=== PATIENT | female | born 1990 | race Caucasian/White ===

== ENCOUNTER 2021-04-14 20:26 | Outpatient (REF) | payer OTHER, SELFPAY | END 2021-04-14 20:27 | disposition home or self-care (01) | LOC: LBN 20:26 | PROVIDERS: Visit Provider Nurse Practitioner Family | DX: R30.0 Dysuria (principal) | CPT/HCPCS: 87077; 87086; 87186 ==

== ENCOUNTER 2021-05-30 13:51 | Outpatient (REF) | payer OTHER, SELFPAY ==
[2021-05-30 20:03] LABS: *AMPHETAMINES SCREEN URINE Negative (Negative); *BARBITURATES SCREEN URINE Negative (Negative); *BENZODIAZEPINES SCREEN URINE Negative (Negative); Cannabinoids THC Negative (Negative); Cocaine Screen,Urine Negative (Negative); METHADONE URINE SCREEN Negative (Negative); OPIATES URINE SCREEN Negative (Negative)
[2021-05-30 20:25] LABS: Tricyclic Antidepressants Negative (Negative)
[2021-06-02 13:51] LABS: Chlamydia Result Negative (Negative); GC Result Negative (Negative)
[2021-06-06 09:57] LABS: Buprenorphine Negative ng/mL (Cutoff: 5.0); Norbuprenorphine Negative ng/mL (Cutoff: 2.5)
== END 2021-05-30 13:52 | disposition home or self-care (01) ==
LOC: LBN 13:51
PROVIDERS: Visit Provider Advanced Practice Midwife
DX: O26.891 Other specified pregnancy related conditions, first trimester (principal); N89.8 Other specified noninflammatory disorders of vagina; R30.0 Dysuria; Z11.3 Encounter for screening for infections with a predominantly sexual mode of transmission; Z3A.12 12 weeks gestation of pregnancy
CPT/HCPCS: 80307; 87077; 87491; 87591; 87086; 87186; 87480; 87510; 87660

== ENCOUNTER 2021-06-06 02:12 | Outpatient (CLI) | payer OTHER, SELFPAY ==
[2021-06-06 15:05] LABS: Abs Immature Grans 0.04 10^3/uL (0.0-0.06); Absolute Basophil Count 0.04 10^3/uL (0.0-0.2); Absolute Eosinophil Count 0.12 10^3/uL (0.0-0.7); Absolute Lymphocyte Count 1.65 10^3/uL (1.2-3.4); Absolute Monocyte Count 0.62 10^3/uL (0.1-0.8); Absolute Neutrophil Count 5.68 10^3/uL (1.2-6.7); Basophils % 0.5; Eosinophils % 1.5; HCT 33.6 % (36.0-46.0); Immature Grans % 0.5; Lymphocytes % 20.2; MCH 29.6 pg (27.0-33.0); MCHC 32.7 % (32.0-36.0); MCV 90.3 fL (80-95); MPV 8.3 fL (8.0-11.0); Monocytes % 7.6; Neutrophils % 69.7; Nucleated RBC 0 %; Platelet Count 298 10^3/uL (130-400); RBC 3.72 10^6/uL (3.93-5.22); RDW 14.3 % (11.7-14.6); RDW-SD 46.6 fL; WBC 8.15 10^3/uL (4.4-10.8)
[2021-06-06 16:04] LABS: TSH (W/Ref FT4) 0.48 uIU/mL (0.36-3.74)
[2021-06-07 10:21] LABS: Hepatitis B Surface Ag Negative (Negative)
[2021-06-07 10:24] LABS: Varicella IgG Antibody Negative (See Note)
[2021-06-07 10:31] LABS: Rubella IgG Ab (UVM) Positive (See Note)
[2021-06-07 11:01] LABS: HIV-1/2 Ag & Ab Screen Negative (Negative)
[2021-06-07 11:02] LABS: Hepatitis C Ab w Rflx HCV PCR Negative (Negative)
[2021-06-08 11:59] LABS: Syphilis Total Ab w/Reflex Nonreactive (Nonreactive)
== END 2021-06-06 02:13 | disposition home or self-care (01) ==
LOC: LBO 02:12
PROVIDERS: Visit Provider Advanced Practice Midwife
DX: Z34.91 Encounter for supervision of normal pregnancy, unspecified, first trimester; Z83.49 Family history of other endocrine, nutritional and metabolic diseases
CPT/HCPCS: 36415; 86787; 86803; 86850; 86900; 86901; 87340; 87389; 84443; 85025; 86762; 86780

== ENCOUNTER 2021-09-11 03:25 | Outpatient (CLI) | payer OTHER, SELFPAY ==
[2021-09-11 11:55] LABS: HCT 33.2 % (36.0-46.0); HGB 10.5 g/dL (11.2-15.7); MCH 30.3 pg (27.0-33.0); MCHC 31.6 % (32.0-36.0); MCV 95.7 fL (80-95); MPV 8.3 fL (8.0-11.0); Platelet Count 276 10^3/uL (130-400); RBC 3.47 10^6/uL (3.93-5.22); RDW 12.7 % (11.7-14.6); RDW-SD 44.6 fL; WBC 9.09 10^3/uL (4.4-10.8)
[2021-09-11 12:01] LABS: Glucose,1 Hr (Glucola) 160 mg/dL (80-140)
== END 2021-09-11 03:26 | disposition home or self-care (01) ==
LOC: LBO 03:25
PROVIDERS: Visit Provider Advanced Practice Midwife
DX: Z34.92 Encounter for supervision of normal pregnancy, unspecified, second trimester (principal); Z3A.27 27 weeks gestation of pregnancy
CPT/HCPCS: 36415; 82950; 85027

== ENCOUNTER 2021-11-06 19:33 | Observation (INO) | payer OTHER, SELFPAY ==
--- NOTE | 2021-11-06 19:06 | W.OBNST ---
Date of service: 11/06/21 Time of Service: 19:06 NST Evaluation Reason for NST Reasons for Nonstress Test: LABOR Test and Monitor Explained Test/Monitor Explained: Test Explained, Monitor Explained and Patient Verbalized Understanding NST Evaluation Patient States Movement: Present Variability: Moderate 6-25 bpm Accelerations: 15x15 Decelerations: None NST Results: Reactive Note NST Note Note: NST is done as patient present with contractions all day and complaint of small leak of clear fluid at 1000 today. ROM plus obtained. NST is reactive and reassuring. Contractions are noted every 5 minutes. Will await ROM plus results before any further assessment. Patient is comfortable. NST Reviewed and Verified by: Alaina Montano
[2021-11-06 19:23] LABS: ROM Plus Negative
--- NOTE | 2021-11-06 19:35 | W.PM.OBHPL1 ---
Date of service: 11/06/21 Time of Service: 19:35 Assessment and Plan Assessment and plan (1) Irregular uterine contractions: Status: Acute Assessment and plan: 1. ROM plus negative 2. Not dilated 3. IV hydration and reassess 4. GBS will be obtained todayKH OB-HPI Labor/Delivery History of Present Illness Reason for Visit: rule out labor Chief Complaint: Uterine Contractions; Suspected Rupture of Membranes , Associated Signs and Symptoms of Suspected ROM: vaginal discharge . JOHN Calculator Estimated Delivery Date Method Current WG Current Estimate 12/08/21 Ultrasound #1 35w 3d Other Estimates 11/28/21 LMP (Certain) 36w 6d Comments: had small leak of fluid at 1000 today, none since. Contractions today but is not well hydrated. No bleeding reported. baby is active. KH History of Present Expected Delivery Route/Plan - CNM, may want to meet MD's in case FOB - Phil Schrader (1st together, has three other children, 1 twin with autism) BG - Estrella Arrington Varicella Non-Immune - offer vaccine PP Specific Issues/Plan 1. History of frequent UTI - treated 04/16 with macrobid x 7 days 1a. symptomatic and hematuria - treated with macrobid x 10 days 05/30. culture sent, cranberry tablets recommended 1b. UTI - pos. e.coli - treated with macrobis x 10 days. 2. Family history of ASD- patient's sister, offered Level 2 - chooses [facility] ultrasound 3. Declines serum genetic testing. 4. Faiza declines covid vaccine, partner Phil is vaccinated. 5. Heart murmur - referred to her PCP for evaluation. 6. Varicella non immune - discuss w/pt, offer vaccine PP 7. Reports umbilical hernia and diastasis, she will meet with surgeon. Declines PT referral until PP.-maternity support recommended, 8. 1 hour 160, 3 hr (done out of system) 9. Anemia, review dietary and iron supplementation 10. repeat fingerstick hgb 33 weeks 11. 3 hour being done out of [facility], will be doing it 10/16/21: 11a. patient reported 3 hour levels, 68/150/162/149 11b. will start doing 4 times daily glucose checks and bring log 10/27/21 Review of Systems Narrative: ROS is negative except for uterine contractions and mild discomfort. ROM plus negative and patient is reassured. PFSH All Active Problems (Updated 11/06/21 @ 19:42 by Alaina Montano CNM) Irregular uterine contractions (Acute) Gestational diabetes (Acute) Rectus diastasis of lower abdomen (Acute) Susceptible to varicella (non-immune), currently (Acute) Vaginal discharge during in first trimester (Acute) Dysuria during (Acute) Family history of thyroid disease (Acute) Nausea and vomiting during (Acute) (Acute) Hx of urinary tract infection (Acute) Positive test (Acute) Medical History History of migraine Hx of recurrent urinary tract infection Ocular migraine Family History Sister Thyroid disorder graves disease Father Depression Anxiety Maternal Grandmother Heart disease Social History Smoking risk assessment performed?: No History Past Pregnancies Del. Date GA/Weeks # Outcome Route Wgt Sex Labor Lgth Anesthesia Location Prov Compl 05/02/16 40 No Successful vaginal 7 lb Female [facility] 04/16/18 38 No Successful vaginal 6 lb 8 oz Male 4 [facility] 05/19/20 37 No Successful vaginal 7 lb 1 oz Male 3 hours [facility] Delivery Date: 05/02/16 Last Updated by: Alaina Link CNM planned induction at 40 weeks. [facility] Delivery Date: 04/16/18 Last Updated by: Alaina Link CNM AROMChris Delivery Date: 05/19/20 Last Updated by: Alaina Link CNM Luke PROM, IOL Meds Allergies and Home Medications Allergies Allergy/AdvReac Type Severity Reaction Status Date / Time No Known Allergies Allergy Verified 11/06/21 19:41 Home Medications Medication Instructions Recorded Confirmed Type PNV 153-FA 400 mcg-om3 35 mg-dha tab PO BID tab 04/14/21 10/12/21 History 25 mg-epa 5 mg-fish oil chew tablet ( Gummies) ondansetron HCl 4 mg tablet 4 mg PO Q8H PRN #45 tab 10/12/21 10/12/21 Rx alcohol swabs (Alcohol Pads) 1 pad TOPICAL .4 times daily #200 10/19/21 Rx ea blood sugar diagnostic (Blood #100 10/19/21 Rx Glucose Test) blood-glucose meter #1 10/19/21 Rx lancets 26 gauge #200 10/19/21 Rx Exam Physical Exam Vital signs: see nurses notes. Constitutional Constitutional: mild distress and thin Detailed Labor and Delivery Exam Dilation: 0 Effacement (%): 10 station: -3 Cervix position: posterior Consistency: soft Allan Score: Cervical Points Exam 0 1 2 3 Dilation Closed 1-2cm 3-4 cm 5-6cm Effacement 0-30% 40-50% 60-70% 80% Consistency Firm Medium Soft Station -3 -2 -1,0 +1,+2 Position Posterior Mid Anterior ALLAN Score(Cervical Ripeness Score): 2 Amniotic Membrane Status: Intact ROM Plus: Negative Monitor Mode: Palpation Contraction Frequency(min): 5-7 Contraction Duration(sec): 60-80 Contraction Intensity: Mild Fetus A Heart Rate Baseline: 125 Monitor Accelerations: 15 X 15 Monitor Decelerations: None Variability: Moderate (6-25 BPM) Categories: Category I Est. Weight: 5 lb HEENT Exam HEENT Exam: Normal Neck Exam Neck Exam: Not Done Chest/Brest/Axilla Exam Chest Exam: Normal Breast Exam Breast Exam: Not Done Respiratory Exam Respiratory Exam: Normal Cardiovascular Exam Cardiovascular Exam: Normal Abdominal Exam Abdominal Exam: Normal Rectal Exam Rectal Exam: Not Done Exam Exam: Normal Extremities Exam Extremities Exam: Normal Back/Spine/Pelvis Exam Back Exam: Not Done Pelvis Adequate: Yes Skin Exam Skin Exam: Normal Neurological Exam Neurological Exam: Normal Psychiatric Exam Psychiatric Exam: Normal Results Results Group Beta Strep: Done-Result Unknown Risk Assessment Risk for Shoulder Dystocia Historical/Initial OB: NEGATIVE FOR: Pelvic Abnormality, Pre- BMI>30, Previous Shoulder Dystocia or Previous Macrosomia Date/Initial: 11/06/21 Delivery Plan @ 36wks: NVD Risk for Pre-Eclampsia Yes, if one or more: NEGATIVE FOR: Hx Pre-E/Gest HTN, Chronic HTN, Multiple Gestation, Pre-gestational DM, Renal Disease, Systemic Lupus or APA Syndrome Yes, if 2 or more: NEGATIVE FOR: Nulliparity, Age>= 35 yrs, >10yr btwn pregnancies, BMI>30, ethinicty, Mother/Sister w/ Pre-E or Previous IUGR Risk for Post- Hemorrhage Initial: NEGATIVE FOR: Multiple Gestation, Previous PPH, Known Clotting Deficiency, Grand Multiparity or Anticoagulation Risks Reviewed Risks Reviewed Upon Admission: Yes
[2021-11-06] MEDS: Lactated Ringers 1,000 ML 1000 ML IV ×2 (19:46→20:45)
[2021-11-06 19:47] VITALS: BP 106/55; PULSE 78; RESP 18; TEMP 36.8
[2021-11-06 19:48] VITALS: BP 106/55; PULSE 78
[2021-11-06 20:00] VITALS: BP 119/66; PULSE 82
--- NOTE | 2021-11-06 21:22 | W.PM.OBNL1 ---
Date of service: 11/06/21 Time of Service: 21:22 Contractions Monitor Mode: External Contraction Frequency(min): irregular q4-6 Intensity: Mild Fetus A Monitor: External (US) Heart Rate Baseline: 140 Presentation: Cephalic Variability: Moderate (6-25 BPM) Categories: Category I Accelerations: 15 X 15 Decelerations: None Amniotic Membrane Status: Intact Assessment and Plan Assessment and plan (1) Dehydration during : Status: Acute Assessment and plan: Urine sp gr 1.030, received 1 liter LR bolus IV Given a 2nd liter of LR as bolus an hour later Drinking gingerale and tolerating PO intake well Repeat urine dip per void (2) Ketonuria: Status: Acute Assessment and plan: Large ketones on urine dip. CGM in the 50's. Given gingerale to drink with PB on sukhjinder crackers. (3) uterine contractions in third trimester, antepartum: Status: Acute Assessment and plan: 31 yo @ 35+3 wks per LMP confirmed by 9 wk ultrasound ROM negative. Cvx closed on admission evaluation. GBS unknown. Will recheck cvx in 2-3 hrs (4) Gestational diabetes: Status: Acute Assessment and plan: Diet controlled, using CGM, has adopted a keto diet for past few weeks. CGM readings 60-100 Has had a TWG of 20 lbs 36 wk weight/BHARATH ultrasound due next week Objective Temp Pulse Resp BP 98.2 F 78 18 106/55 L 11/06/21 19:47 11/06/21 19:48 11/06/21 19:47 11/06/21 19:48 Laboratory Results Membranes Rupture Negative 11/06/21 18:23 Objective Narrative Objective Narrative: CGM readings for glucose 55-65 Fingerstick POC glucose 78 UA large ketones, sp gr 1.030 Category 1 tracing, uterine activity continues Tolerating PO intake Normotensive, afebrile FOB at bedside, appropriate concern and support Subjective Interval history since last seen: Continues to feel contractions that have begun to hurt in her back. No nausea, bleeding, or ROM. States she feels off. Has been eating a keto diet, found that recently any carbohydrate intake causes blood sugar spikes as high as 200 with nausea and other symptoms, then it falls rapidly so she cut nearly all carbs out. She shows a CGM log of blood sugars remaining 60-100 for several days, including postprandial values.
[2021-11-06] MEDS: Ondansetron 4 MG/2 ML VIAL IVP (22:04)
[2021-11-06 22:17] VITALS: BP 125/67; PULSE 86; RESP 20; TEMP 36.8
--- NOTE | 2021-11-06 22:22 | W.PM.OBNL1 ---
Date of service: 11/06/21 Time of Service: 22:22 Pelvic Exam Dilation: 3 Effacement (%): 80 station: -3 Cervix Position: posterior Consistency: soft Vaginal Exam Presentation: Cephalic Contractions Monitor Mode: External Contraction Frequency(min): q4-6 Intensity: Mild/Moderate (with back pain) Fetus A Monitor: External (US) Heart Rate Baseline: 140 Presentation: Cephalic Variability: Moderate (6-25 BPM) Accelerations: 15 X 15 Decelerations: None Amniotic Membrane Status: Intact Assessment and Plan Assessment and plan (1) uterine contractions in third trimester, antepartum: Status: Acute Assessment and plan: A: multipara with hx rapid labor suspect cervical change, possibly in early late labor (35+3 wks) category 1 tracing CGM now reading in the 90's after snack P: Begin PCN prophylaxis for unknown GBS status Move to labor room Zofran 4 mg IVP Recheck cvx in 2-3 hrs Objective Temp Pulse Resp BP 98.2 F 86 20 125/67 11/06/21 22:17 11/06/21 22:17 11/06/21 22:17 11/06/21 22:17 Laboratory Results Membranes Rupture Negative 11/06/21 18:23 Vital Signs Reviewed: Yes Subjective Interval history since last seen: nausea increased, requesting zofran for anti-emetic
[2021-11-06] MEDS: Penicillin G POT. 5,000,000 UNITS in Normal Saline 100 ML 200 UNITS IVPB (22:36)
[2021-11-07] VITALS (9 sets, daily range): BP systolic 107–119; BP diastolic 54–66; PULSE 67–89; RESP 16–18; TEMP 36.8–37.1
--- NOTE | 2021-11-07 | DI.US_ITS ---
Exam(s) US OB BHARATH WEIGHT EXAM: US OB BHARATH WEIGHT CLINICAL HISTORY: gestational DM, S<D, PTL risk. TECHNIQUE: Transabdominal obstetrical ultrasound was performed. COMPARISON: US US OB 2-3 TRIMESTER from 07/24/2021 FINDINGS: There is a single viable intrauterine gestation with cardiac activity identified-135 bpm The fetus is presently in cephalic position . Amniotic fluid: There is a normal amount of amniotic fluid. Placental location: The placenta is anterior-fundal, grade 2,with no evidence of placenta previa.The distance from the tip of the placenta to the internal cervical os is 7.5 cm on today's study Dating parameters place this at approximately 36 weeks gestational age, implying JOHN of Nov. BPD measures 36 weeks and 1 day HC measures 38 weeks and 1 day AC measures 34 weeks and 2 days FL measures 35 weeks and 3 days Estimated weight is 2612 gm-5 pounds 12 ounces Fetus is at the 38th percentile on the Hadlock scale. IMPRESSION:: Viable 3rd trimester gestation, as described above. Cervical length is measured at 1.6 cm DATA REPOSITORY:
--- NOTE | 2021-11-07 00:08 | PGE_ITS ---
Date of service: 11/07/21 Time of Service: 00:08 Pelvic Exam Dilation: 3.5 Effacement (%): 80 station: -3 Cervix Position: posterior Consistency: soft Vaginal Exam Presentation: Cephalic Contractions Monitor Mode: External Contraction Frequency(min): irregular q3-4 Intensity: Mild Fetus A Monitor: External (US) Heart Rate Baseline: 125 Presentation: Cephalic Variability: Moderate (6-25 BPM) Categories: Category I Accelerations: 15 X 15 Decelerations: None Amniotic Membrane Status: Intact Assessment and Plan Assessment and plan (1) uterine contractions in third trimester, antepartum: Status: Acute Assessment and plan: A: multipara, r/o prodromal vs early labor 35 wks with unknown GBS status Hx precipitous deliveries GBS sample was not collected prior to vaginal exams and PCN admin P: Continue observation for active labor Encourage rest/sleep AMAP through the night PO hydration/nutrition Continue PCN prophylaxis q 4 hrs Re-evaluate status prn and in the morning Objective Temp Pulse Resp BP 98.4 F 86 18 107/56 L 11/07/21 00:02 11/07/21 00:02 11/07/21 00:02 11/07/21 00:02 Laboratory Results Membranes Rupture Negative 11/06/21 18:23 Vital Signs Reviewed: Yes Objective Narrative Objective Narrative: Pt resting in bed, feeling tired but not sure she can sleep due to contractions. 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
--- NOTE | 2021-11-07 00:24 | W.OBNST ---
Date of service: 11/06/21 Time of Service: 21:00 NST Evaluation Reason for NST Reasons for Nonstress Test: OTHER, SEE COMMENT Reason for NST Other: Rule out pre term labor Gestational Age Gestational Age in Weeks and Days: 35 Weeks and 3Days Test and Monitor Explained Test/Monitor Explained: Test Explained, Monitor Explained and Patient Verbalized Understanding Vital Signs Blood Pressure: 119/66 Pulse: 82 Urine Results Urine Protein: Negative Urine Ketones: Positive Urine Glucose: Negative Urine Blood: Negative NST Information Date on Monitor: 11/06/21 Time on Monitor: 18:20 Date off Monitor: 11/06/21 Time off Monitor: 19:26 Total Time on Monitor: 66 NST Interventions: PO Hydration and IV Fluids NST Evaluation Patient States Movement: Present FHR Baseline: 130 Variability: Moderate 6-25 bpm Accelerations: 15x15 Decelerations: None NST Results: Reactive Note NST Note Note: Will remain in center on observation for PTL NST Reviewed and Verified by: Radha Lawton
[2021-11-07] MEDS: Penicillin G POT. 3,000,000 UNITS in Normal Saline 50 ML 100 UNITS IVPB ×2 (02:34→06:33)
--- NOTE | 2021-11-07 07:41 | W.PM.OBNL1 ---
Date of service: 11/07/21 Time of Service: 07:41 Pelvic Exam Dilation: 3.5 Effacement (%): 80 station: -3 Cervix Position: posterior Consistency: soft Vaginal Exam Presentation: Cephalic Contractions Monitor Mode: External Contraction Frequency(min): irregular Intensity: Mild Fetus A Monitor: External (US) Heart Rate Baseline: 125 Variability: Moderate (6-25 BPM) Categories: Category I Accelerations: 15 X 15 Decelerations: None Amniotic Membrane Status: Intact Assessment and Plan Assessment and plan (1) uterine contractions in third trimester, antepartum: Status: Acute Assessment and plan: A: 31 yo @ 35+4 wks Outpt observation status for PTL No further cvx change since last night Category 1 tracing, irregular contractions per toco GDM diet controlled P: Will obtain growth and BHARATH ultrasound today Hold further PCN doses Urine dip this morning for hydration and ketones Regular diet, Zofran 4 mg IV prn nausea 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 This morning pt states she is very tired, denies nausea, no bleeding or ROM.
[2021-11-07] MEDS: Ondansetron 4 MG/2 ML VIAL IVP ×2 (08:18→12:10)
[2021-11-07] MEDS: Normal Saline Flush 10 ML SYR ×2 (08:18→12:10)
[2021-11-07] MEDS: Betamet Acet/Betamet Na Ph Inj. 30 MG/5 ML 12 MG IM (09:45)
--- NOTE | 2021-11-07 13:17 | W.PM.OBNL1 ---
Date of service: 11/07/21 Time of Service: 13:17 Pelvic Exam Dilation: 3 Effacement (%): 70 station: -4 Cervix Position: posterior Consistency: soft Fetus A Categories: Category I Assessment and Plan Assessment and plan (1) uterine contractions in third trimester, antepartum: Status: Acute Assessment and plan: A: Not in labor, no cvx change Rehydration shown by decreasing urine sp gr Ketonuria persists Minimal PO intake though improves after taking Zofran 1st celestone 12 mg IM given GBS collected and pending P: Discharge to home to continue rest Continue use of Zofran to assist with tolerance of PO intake Continue use of CGM to monitor glucose levels Return for 2nd celestone injection tomorrow Keep appt this Saturday for 36 wk PN visit. Note given to stop working Call for questions, concerns, increasing labor Objective Temp Pulse Resp BP 98.2 F 89 16 108/56 L 11/07/21 07:11 11/07/21 12:04 11/07/21 07:11 11/07/21 12:04 Laboratory Results Membranes Rupture Negative 11/06/21 18:23 Vital Signs Reviewed: Yes Subjective Patient Reports: No new Complaints Interval history since last seen: Pt states she still feels not great, contractions are erratic and not as strong, responded well to Zofran given prior to eating.
--- NOTE | 2021-11-07 13:51 | W.PM.OBDISCH ---
Date of service: 11/07/21 Time of Service: 13:51 DS: Diagnosis Discharge Diagnosis (1) uterine contractions in third trimester, antepartum: Status: Acute Discharge Plan Disposition Patient Disposition: HOME Condition: Good Discharge Details Reason For Visit: rule out labor Admit Date/Time: 11/06/21 19:33 Admit Provider: Radha Lawton Attending Provider: Alaina Montano Primary Care Provider: Unknown,Unknown Hospital Course Hospital Course: observation since yesterday 1900 for PTL, dehydration, ketonuria, pt has rehydrated with oral and IVF, tolerated PO intake with use of anti-emetic medication, no cervical change for over 12 hours. Celestone given today, will return tomorrow for 2nd dose. Home Meds and New Rx's Prescriptions: No Action Gummies 400 mcg-35 mg- 25 mg-5 mg tablet,chewable 1 tab PO BID 0RF ondansetron HCl 4 mg tablet 4 mg PO Q8H PRN (Reason: nausea and vomiting) Qty: 45 0RF (DME) blood-glucose meter Kit See Rx Instructions .ROUTE .MEDSUPPLY Qty: 1 0RF Rx Instructions: 4 times daily (DME) Blood Glucose Test Strip See Rx Instructions .ROUTE .MEDSUPPLY Qty: 100 2RF Rx Instructions: 4 times daily alcohol swabs [Alcohol Pads] Pads, Medicated 1 pad topical .4 times daily Qty: 200 1RF (DME) lancets 26 gauge misc See Rx Instructions .ROUTE .MEDSUPPLY Qty: 200 1RF Rx Instructions: 4 times daily Discharge Instructions Additional Instructions: Return tomorrow for 2nd celestone injection. Keep PN appt this Saturday, call for any questions or concerns, report increasing sx of labor. Stop working, note has been given to you for your employer if needed. Use Zofran pro-actively at home to increase caloric and fluid intake Stand Alone Forms: Center Observation Activity:: Activity as Tolerated Equipment/Supplies:: No Equipment Needed Diet:: Normal Diet Discharge Orders Discharge Orders: Discharge Order (Routine); Ordered 11/07/21 Ordered By: Radha Lawton Discharge Data Discharge Date/Time-TO BE ENTERED AT DEPARTURE: 11/07/21 13:43 OB:DS Summary Contraception Discussed Contraception Discussed: No, Status at Discharge Functional status at discharge: independent ambulation Overall status at discharge: patient is back to baseline Mental Status: mental status grossly normal Speech and Movement: speech and movement normal and speech clear Mood: congruent mood Affect: normal affect Exam Physical Exam Vital signs: Temp Pulse Resp BP 98.2 F 89 16 108/56 L 11/07/21 07:11 11/07/21 12:04 11/07/21 07:11 11/07/21 12:04 Vital Signs Reviewed: Yes Constitutional Constitutional: mild distress Comments: Discharged to home undelivered Respiratory Exam Respiratory Exam: Normal Cardiovascular Exam Cardiovascular Exam: Normal Abdominal Exam Abdomen: Other (Gravid, nontender) Rectal Exam Rectal Exam: Not Done Extremities Exam Extremity Exam: Normal, Full ROM, Pulses Intact and Normal Capillary Refill Back/Spine/Pelvis Exam Back Exam: Normal Skin Exam Skin Exam: Normal Neurological Exam Neurological Exam: Normal Psychiatric Exam Psychiatric Exam: Normal PFSH All Active Problems (Updated 11/06/21 @ 21:31 by Radha Lawton) uterine contractions in third trimester, antepartum (Acute) at 35 weeks Dehydration during (Acute) Ketonuria (Acute) Gestational diabetes (Acute) diet controlled Rectus diastasis of lower abdomen (Acute) Susceptible to varicella (non-immune), currently (Acute) Nausea and vomiting during (Acute) Medical History (Updated 11/06/21 @ 21:31 by Radha Lawton) Dysuria during Family history of thyroid disease History of migraine Hx of recurrent urinary tract infection Hx of urinary tract infection Irregular uterine contractions At 35 weeks Ocular migraine Family History Sister Thyroid disorder graves disease Father Depression Anxiety Maternal Grandmother Heart disease Social History Smoking risk assessment performed?: No History Past Pregnancies Del. Date GA/Weeks # Outcome Route Wgt Sex Labor Lgth Anesthesia Location Prov [facility] 05/02/16 40 No Successful vaginal 7 lb Female [facility] 04/16/18 38 No Successful vaginal 6 lb 8 oz Male 4 [facility] 05/19/20 37 No Successful vaginal 7 lb 1 oz Male 3 hours [facility] Delivery Date: 05/02/16 Last Updated by: Alaina Link CNM planned induction at 40 weeks. [facility] Delivery Date: 04/16/18 Last Updated by: Alaina Link CNM AROMRoneyh Delivery Date: 05/19/20 Last Updated by: Alaina Link CNM Luke PROM, IOL DS: Data Vitals/I&O Vitals and I&O: Vital Signs Temperature 98.2 F 11/07/21 07:11 Pulse 89 11/07/21 12:04 Pulse Rhythm Regular 11/07/21 08:11 Respiratory Rate 16 11/07/21 07:11 Blood Pressure 108/56 L 11/07/21 12:04 Blood Pressure Mean 72 11/07/21 07:11 Pain Level 2 11/07/21 07:11 Intake & Output 11/06/21 11/07/21 11/07/21 23:59 11:59 23:59 Intake Total 2110 / 2110 50 / 100 50 / 100 Output Total 1949 / 1949 300 / 1000 700 / 1000 Balance 160 / 160 -250 / -900 -650 / -900 Weight 127 lb Intake: IV 2109 / 2109 50 / 100 50 / 100 Output: Urine 1947 / 1949 300 / 1000 700 / 1000 Data Completed and Pending Labs on day of discharge: Labs from last 24 hours 11/06/21 18:23 Membranes Rupture Negative 11/06/21 10:00 Perirectal Group B Streptococcus Culture - Pending Preliminary micro results at discharge 11/06/21 10:00 Group B Streptococcus Culture - Pending Perirectal
--- NOTE | 2021-11-07 13:55 | W.OBNST ---
Date of service: 11/07/21 Time of Service: 13:55 NST Evaluation Reason for NST Reasons for Nonstress Test: LABOR Reason for NST Other: Rule out pre term labor Gestational Age Gestational Age in Weeks and Days: 35 Weeks and 4Days Test and Monitor Explained Test/Monitor Explained: Test Explained, Monitor Explained and Patient Verbalized Understanding Vital Signs Blood Pressure: 108/56 Pulse: 89 Temperature: 98.7 F Urine Results Urine Protein: Negative Urine Ketones: Positive Urine Glucose: Negative Urine Blood: Negative NST Information Date on Monitor: 11/07/21 Time on Monitor: 12:04 Date off Monitor: 11/07/21 Time off Monitor: 12:31 Total Time on Monitor: 27 NST Interventions: PO Hydration and Meal Given Contraction Frequency: 2-5 NST Evaluation Patient States Movement: Present FHR Baseline: 140 Variability: Moderate 6-25 bpm Accelerations: 15x15 Decelerations: None NST Results: Reactive Note Other (EFW and BHARATH done in the DI today, 38th percentile and BHARATH of 14.4) NST Note Note: Discharged to home after 19 hours observation Returns tomorrow for 2nd celestone injection, has 36 wk appt Saturday GBS pending NST Reviewed and Verified by: Radha Lawton
== END 2021-11-07 13:43 | disposition home or self-care (01) ==
PROVIDERS: Admitting Provider Advanced Practice Midwife; Visit Provider Advanced Practice Midwife
DX: O47.03 False labor before 37 completed weeks of gestation, third trimester (principal); O24.419 Gestational diabetes mellitus in pregnancy, unspecified control; Z3A.35 35 weeks gestation of pregnancy; K42.9 Umbilical hernia without obstruction or gangrene; O26.893 Other specified pregnancy related conditions, third trimester; O99.013 Anemia complicating pregnancy, third trimester; D64.9 Anemia, unspecified
CPT/HCPCS: 76816; 84112; 59025; 87081; G0378; J0702; J2405; J2540

== ENCOUNTER 2021-11-08 09:01 | Outpatient (CLI) | payer OTHER, SELFPAY ==
[2021-11-08] MEDS: Betamet Acet/Betamet Na Ph Inj. 30 MG/5 ML 12 MG IM (11:40)
== END 2021-11-08 11:50 | disposition home or self-care (01) ==
LOC: BCD 09:14 → OBS 10:10
PROVIDERS: Visit Provider Advanced Practice Midwife
DX: O47.03 False labor before 37 completed weeks of gestation, third trimester (principal)
CPT/HCPCS: 96372; J0702

== ENCOUNTER 2021-11-16 01:22 | Outpatient (RCR) | payer OTHER, SELFPAY ==
[2021-11-16] MEDS: Normal Saline Flush 10 ML SYR IVP (13:13)
[2021-11-16] MEDS: IRON SUCROSE COMPLEX 200 MG in Normal Saline 100 ML 220 MG IVPB (13:25)
== END 2021-11-20 23:59 | disposition home or self-care (01) ==
LOC: INF 01:22
PROVIDERS: Visit Provider Advanced Practice Midwife
DX: O99.013 Anemia complicating pregnancy, third trimester (principal)
CPT/HCPCS: 96365; J1756

== ENCOUNTER 2021-11-22 01:15 | Outpatient (RCR) | payer OTHER, SELFPAY ==
[2021-11-22 13:03] LABS: HGB 9.8 g/dL (11.2-15.7)
[2021-11-22] MEDS: Normal Saline Flush 10 ML SYR IVP (13:25)
[2021-11-22] MEDS: IRON SUCROSE COMPLEX 200 MG in Normal Saline 100 ML 440 MG IVPB (13:25)
== END 2021-12-21 23:59 | disposition home or self-care (01) ==
LOC: INF 01:15
PROVIDERS: Visit Provider Advanced Practice Midwife
DX: O99.013 Anemia complicating pregnancy, third trimester (principal)
CPT/HCPCS: 36415; 96365; 85018; J1756

== ENCOUNTER 2021-11-22 14:30 | Outpatient (CLI) | payer OTHER, SELFPAY ==
--- OUTSIDE RECORDS SUMMARY | 2021-11-22 14:37 | XMS_ITS ---
:1990 Author Care Team Providers Name Role Phone DHRUV FRIED MD General Surgeon [phone] P[facility] Primary Care Provider [phone] Allergies Code Code System Name Reaction Severity Status Onset NKDA ? Medications Name Status Start Date Stop Date ? ? amoxicillin 500 mg capsule Completed ? 12/16 amoxicillin 500 mg tablet Completed 10/02/20172017 1 (one) Tablet Tablet: two times daily azithromycin 500 mg tablet Completed 12/13/201603/08 2 (two) Tablet: one time dose Bactrim DS 800 mg-160 mg tablet Completed 10/01/2016 10/04/2016 1 (one) Tablet: every 12 hours Diflucan 150 mg tablet Completed 10/22/2016 7 1 (one) Tablet: Take one tablet today then repeat dose in 3 day s Keflex 500 mg capsule Completed ? 07/28/2020 Take 1 capsule twice a day by oral route for 7 days. Levaquin 500 mg tablet Completed 10/04/2016 7 1 (one) Tablet: once daily Multi For Her Completed ? 11/16/2019 daily nitrofurantoin macrocrystal 50 Completed ? 0 01/15/2019 mg capsule nitrofurantoin Completed ? 10/16/2018 monohydrate/macrocrystals 100 mg capsule ondansetron 4 mg disintegrating Completed ? 04/22/2018 tablet Active 05/20/2020 Not available Robaxin 500 mg tablet Completed 08/30/2016 10/22/2016 1 (one) Tablet: 2-3 times a day as needed for neck pain Problems Name Status Onset Date Source ? Unknown 02/26/2018 ? Chronic Diarrhea Active 06/25/2019 ? Nausea Unknown 06/29/2019 ? Altered Bowel Function Active 06/29/2019 ? Motion Sickness Active 07/01/2019 ? Abdominal Bloating Active 07/17/2019 ? Unknown 10/15/2019 ? Routine Care Active 11/16/2019 ? Dehydration Unknown ? History Dyspareunia Active ? History Urinary Tract Infection in Unknown ? History Vomiting Unknown ? History Routine Care Unknown ? History Gynecologic Examination Unknown ? History Procedures Date Name Performed by ? 07/08/2019 Colonoscopy Information not avai lable Notes: polyp 07/08/2019 Egd Information not avai lable 09/23/2010 Extraction of [place] Tooth Information n ot available 08/13/2018 US, Abdomen, Limited [facility] Radiology (Internal) [address] [place] [address] (Work Place) 10/15/2019 US, Obstetric, Transabdominal + [facility] Radiology (Internal) Transvaginal [address] [place] [address] (Work Place) 11/18/2019 US, Obstetric, 1St Trimester [facility] Radiology (Internal) [address] [place] [address] (Work Place) 12/17/2019 US, Obstetric, Transabdominal + [facility] Radiology (Internal) Transvaginal [address] [place] [address] (Work Place) 07/28/2020 US, Pelvis, Transabdominal + [facility] Radiology (Internal) Transvaginal [address] [place] [address] (Work Place) Results Lab Results Date Name Specimen Result Interpretation Description Value Range Status Address ? 06/30/2020 Culture UR ? Final microbiology ? Final [place] ([place] results Country Count), Hospital Lab Urine (Internal) : [address] 06/30/2020 Urinalysis, UR ? UA-color yellow pale Final [place] Complete [place] Hospital L ab (Internal) : [address] ? ? UR ? UA-appear clear clear Final [facility] Hospital L ab (Internal) : [address] ? ? UR ? UA-spec 1.025 1.003 Final [place] Grav -1.03 Country 5 Hospital L ab (Internal) : [address] ? ? UR ? UA-pH 5.5 [pH] 4.6-8 Final [place] .0 Country [pH] [facility] ab (Internal) : [address], [place] ? ? UR ? UA-leuk negative negat Final [facility] ab (Internal) : [address] ? ? UR ? UA-nitrit negative negat Final [facility] ab (Internal) : [address] ? ? UR ? UA-prot negative negat Final [facility] ab (Internal) : [address], [place] ? ? UR ? UA-gluc negative negat Final [facility] ab (Internal) : [address], [place] ? ? UR ? UA-ketone negative negat Final [facility] ab (Internal) : [address] ? ? UR ? UA-urobil normal bennie Final [place] [facility] ab (Internal) : [address] ? ? UR ? UA-bili negative negat Final [facility] ab (Internal) : [address] ? ? UR ? UA-blood negative negat Final [facility] ab (Internal) : [address] ? ? UR ABNORM UA-WBC 3-5 [hpf] 0-3 Final [place] AL [hpf] [facility] ab (Internal) : [address] [place] ? ? UR ? UA-RBC 0-2 [hpf] 0-2 Final [place] [hpf] [facility] ab (Internal) : [address] [place] ? ? UR ABNORM UA-bacter few [hpf] none Final Nor th AL ia seen Country [hpf] Hospital ab (Internal) : [address] [place] ? ? UR ABNORM UA-epithe few [hpf] none Final Nor th AL lial seen Country [hpf] Hospital ab (Internal) : [address] [place] ? ? UR ? UA-mucus none seen none Final Nort h [hpf] seen Country [hpf] Hospital ab (Internal) : [address], [place] ? ? UR ABNORM Yeast, UA rare [hpf] none Final No rth AL seen Country [hpf] Hospital ab (Internal) : [address] 06/30/2020 Pap Test, MISC ? Pap see report ? Final [place] Thinprep, [facility] Cervical Hospital Lab (Internal) : [address] ? ? MISC ? Report (see below) ? Final Nort h [facility] Hospital L ab (Internal) : [address] 05/19/2020 Alpha MISC ? Pamg-1 positive ? Final Nor th Microglobuli (Amnisure) Country n-, Hospital L ab Placental (Library Clerk al): (Pamg-1), [address] [place] Vaginal Fluid 05/05/2020 Streptococcu ? Final microbiology ? [facility] results Count ry Culture, Hospital Lab Vaginal or (Inter nal): Rectal [address] 05/04/2020 SARS CoV 2 SWAB ? Covid-19 negative negat [facility] RNA Result donald Country (COVID-19), Hospi juana Lab QL, candy spreader-PCR, (Int ernal): Respiratory [address] ? ? SWAB ? Performin the broad ? Final Nor th g Lab institute [facility] Hospital L ab (Internal) : [address] 04/28/2020 Alpha MISC ? Pamg-1 negative ? Final Nor th Microglobuli (Amnisure) Country n, Hospital [facility] Placental (Library Clerk al): (Pamg-1), [address], [place] Vaginal Fluid 02/24/2020 CBC W/ Auto BLD ? Wbc 7.8 10*3/uL 5.0-1 [facility] Diff 0.0 Country 10*3/ Hospital L ab uL (Internal) : [address] t ? ? BLD Low Rbc 3.34 10*6/uL 4.10- Final Nort h 5.30 Country 10*6/ Hospital L ab uL (Internal) : [address] t ? ? BLD Low Hgb 10.7 g/dL 12.0- Final [place] 16.0 Country g/dL Hospital L ab (Internal) : [address] ? ? BLD Low Hct 32.6 % 37.0- Final [place] 47.0 Country % Hospital L ab (Internal) : [address] [place] ? ? BLD High Mcv 97.6 fL 80.0- Final [place] 96.0 Country fL Hospital L ab (Internal) : [address] , [place] ? ? BLD ? Mch 32.0 pg 26.0- Final [place] 32.0 Country pg Hospital L ab (Internal) : [address] [place] ? ? BLD ? Mchc 32.8 g/dL 31.0- Final [place] 35.0 Country g/dL Hospital L ab (Internal) : [address] [place] ? ? BLD ? Rdw 13.0 % 11.5- Final [place] 14.5 Country % Hospital L ab (Internal) : [address] , [place] ? ? BLD ? Plt 283 10*3/uL 130-4 Final North 50 Country 10*3/ Hospital L ab uL (Internal) : [address] [place] ? ? BLD ? Anc 5.14 10*3/uL ? Final Nort h Country Hospital L ab (Internal) : [address] [place] ? ? BLD ? Nlr 2.61 0.00- Final [place] 3.20 Country Hospital L ab (Internal) : [address] [place] ? ? BLD ? Neutro 66.3 % 40.0- Final [place] 75.0 Country % Hospital L ab (Internal) : [address] [place] ? ? BLD ? Lymph 25.4 % 20.0- Final [place] 50.0 Country % Hospital L ab (Internal) : [address] [place] ? ? BLD ? [place] 4.9 % 2.0-1 Final North 0.0 % Country Hospital L ab (Internal) : [address] [place] ? ? BLD ? Eos 2.4 % 1.0-6 Final [place] .0 % Country Hospital L ab (Internal) : [address] [place] ? ? BLD ? Baso 0.5 % 0.0-1 Final [place] .0 % Country Hospital L ab (Internal) : [address] [place] ? ? BLD ? Ig 0.5 % 0.0-0 Final [place] .9 % Country Hospital L ab (Internal) : [address], [place] 02/24/2020 Glucose S ? Gluc, 1 95 mg/dL 70-14 Final N orth Tolerance hr Pp 0 Country Test, mg/dL Hospital L ab Gestational, (Int ernal): 1-Hour [address] 11/19/2019 CBC W/ Auto BLD ? Wbc 9.0 10*3/uL 5.0-1 Fin al North Diff 0.0 Country 10*3/ Hospital L ab uL (Internal) : [address] ? ? BLD ? Rbc 4.22 10*6/uL 4.10- Final Nort h 5.30 Country 10*6/ Hospital L ab uL (Internal) : [address] ? ? BLD ? Hgb 12.6 g/dL 12.0- Final [place] 16.0 Country g/dL Hospital L ab (Internal) : [address] ? ? BLD ? Hct 38.2 % 37.0- Final [place] 47.0 Country % Hospital L ab (Internal) : [address] ? ? BLD ? Mcv 90.5 fL 80.0- Final [place] 96.0 Country fL Hospital L ab (Internal) : [address] ? ? BLD ? Mch 29.9 pg 26.0- Final [place] 32.0 Country pg Hospital L ab (Internal) : [address] ? ? BLD ? Mchc 33.0 g/dL 31.0- Final [place] 35.0 Country g/dL Hospital L ab (Internal) : [address] ? ? BLD High Rdw 14.6 % 11.5- Final [place] 14.5 Country % Hospital L ab (Internal) : [address] ? ? BLD ? Plt 310 10*3/uL 130-4 Final [place] 50 Country 10*3/ Hospital L ab uL (Internal) : [address] ? ? BLD ? Anc 6.31 10*3/uL ? Final Nort h Country Hospital L ab (Internal) : [address] t ? ? BLD ? Neutro 70.2 % 40.0- Final [place] 75.0 Country % Hospital L ab (Internal) : [address], [place] ? ? BLD ? Lymph 22.1 % 20.0- Final [place] 50.0 Country % Hospital L ab (Internal) : [address], [place] ? ? BLD ? [place] 4.8 % 2.0-1 Final North 0.0 % Country Hospital L ab (Internal) : [address], [place] ? ? BLD ? Eos 1.9 % 1.0-6 Final North .0 % Country Hospital L ab (Internal) : [address], [place] ? ? BLD ? Baso 0.6 % 0.0-1 Final North .0 % Country Hospital L ab (Internal) : [address], [place] ? ? BLD ? Ig 0.4 % 0.0-0 Final [place] .9 % Country Hospital L ab (Internal) : [address] t 11/19/2019 Culture UR ? Final microbiology ? Final [place] ([place] results Country Count), Hospital Lab Urine (Internal) : [address] 11/19/2019 Urinalysis, UR ? UA-color yellow pale Final [facility] Hospital L ab (Internal) : [address] [place] ? ? UR ? UA-appear clear clear Final [facility] Hospital L ab (Internal) : [address] [place] ? ? UR ? UA-spec 1.020 1.003 Final [place] Grav -1.03 Country 5 Hospital L ab (Internal) : [address] ? ? UR ? UA-pH 7.0 [pH] 4.6-8 Final [place] .0 Country [pH] Hospital L ab (Internal) : [address] [place] ? ? UR ? UA-leuk negative negat Final [facility] Hospital L ab (Internal) : [address] [place] ? ? UR ? UA-nitrit negative negat Final Nort h e [facility] Hospital L ab (Internal) : [address] [place] ? ? UR ? UA-prot negative negat Final [facility] Hospital L ab (Internal) : [address] ? ? UR ? UA-gluc negative negat Final [facility] Hospital L ab (Internal) : [address] ? ? UR ? UA-ketone negative negat Final Nort [facility] L ab (Internal) : [address] ? ? UR ? UA-urobil normal bennie Final [facility] L ab (Internal) : [address] t ? ? UR ? UA-bili negative negat Final [facility] L ab (Internal) : [address] ? ? UR ? UA-blood negative negat Final [facility] L ab (Internal) : [address] t ? ? UR ABNORM UA-WBC 3-5 [hpf] 0-3 Final [facility] [hpf] [facility] Hospital L ab (Internal) : [address] t ? ? UR ? UA-RBC 0-2 [hpf] 0-2 Final [place] [hpf] [place] [facility] L ab (Internal) : [address] ? ? UR ABNORM UA-bacter moderate none Final Nort h AL ia [hpf] seen [facility] [hpf] Hospital L ab (Internal) : [address] ? ? UR ABNORM UA-epithe few [hpf] none Final Nor th AL lial seen [facility] [hpf] Hospital L ab (Internal) : [address] ? ? UR ? UA-mucus none seen none Final Nort h [hpf] seen [facility] [hpf] Hospital L ab (Internal) : [address] 11/19/2019 Type + BLD ? Abo A ? Final [facility] Hospital L ab (Internal) : [address] t ? ? BLD ? Rh positive ? Final [facility] L ab (Internal) : [address] t ? ? BLD ? Ab Scrn negative negat Final [facility] L ab (Internal) : [address] 11/19/2019 Hepatitis C S ? Hep C Ab negative negat [facility] Virus Ab, W Rfx PCR donald [facility] Hospital L ab (Internal) : [address] 11/19/2019 HBsAg S ? Hep B negative negat Final Nort h ([facility] Hosp ital Lab Serum (Internal) : [address] t 11/19/2019 HIV (1+2) Ab S ? HIV 1/2 negative negat [facility] srinivas [place] Screen, Antigen [facility] Serum and Hospital L ab Antibody (Interna l): [address] t 11/19/2019 RPR (Rapid BLD ? Obs RPR non-reactive non-r F [facility] Plasma [facility] Reagin), Hospital Lab Serum (Internal) : [address] t 11/19/2019 Rubella Ab, BLD ? Obs Rbla positive posit Wily espino [place] Serum [facility] L ab (Internal) : [address] t 11/16/2019 CT RNA, MISC ? Chlamydia negative negat Final [place] Qual, PCR, Result donald Countr y Unspecified Hospi juana Lab Specimen (Interna l): [address] t ? ? MISC ? GC Result negative negat Final Nort h [facility] L ab (Internal) : [address] t 07/08/2019 Urease, TISS - Final microbiology ? Final [place] Qualitative, results Cou [facility] L ab (Internal) : [address] 07/08/2019 Pathology TISS - Report results below ? Co rrected [facility] ab (Internal) : [address] t 06/30/2019 Enteric STL - [place] see comments ? Fi nal [place] Bacteria, a PCR Country Organism Hospital Lab Specific (Interna l): Culture, [address] ? ? STL - Shigella see comments ? Final N orth PCR [place] [facility] L ab (Internal) : [address] ? ? STL - Campyloba see comments ? Final [place] cter PCR [facility] ab (Internal) : [address] t ? ? STL - Shiga see comments ? Final Nort h Toxin PCR [facility] ab (Internal) : [address] t 06/30/2019 C Diff Toxin STOOL - C. Diff negative negat Wily Olmedo Genes, Qual, ([facility]) donald Coun try PCR, Stool Hospit al Lab (Internal) : [address] t 06/30/2019 Calprotectin STL High Calprotec 56.4 mcg/g <=50. Final North , Stool tin, F 0 Country (norm Hospital L ab al) (Internal) : mcg/g [address] 02/17/2019 Endomysium S - Endomysia negative negat Fin al [place] Ab, IgA, IF, l Ab donald Coun try Titer, Serum Hosp ital Lab (Internal) : [address] 02/17/2019 Iga, S - Iga 152 mg/dL 85-49 Final Nor th Quantitative 9 Coun try , Serum mg/dL Hospital Lab (Internal) : [address] 02/17/2019 Tissue S - Tissue <1.2 U/mL <4.0 Final No rth Transglutami Transgluta (nega Country nase IgA Ab, minase Ab, tive) Hospital Lab Quantitative IgA, S U/mL (Int ernal): , Serum [address] 10/16/2018 Wet [place] ? No ? ? ? P_o b/Scraper Meat: 81 observatio Medica l n [facility]. [facility] 07/29[facility]2018 Urinalysis, UR - UA-color pale yellow pale Final [place] Complete yeo Country w Hospital L ab (Internal) : [address] ? ? UR - UA-appear clear clear Final [facility] Hospital L ab (Internal) : [address] ? ? UR - UA-spec 1.010 1.003 Final [place] Grav -1.03 Country 5 Hospital L ab (Internal) : [address] ? ? UR - UA-pH 6.0 [pH] 4.6-8 Final [place] .0 Country [pH] Hospital L ab (Internal) : [address] ? ? UR - UA-leuk negative negat Final [facility] Hospital L ab (Internal) : [address] ? ? UR - UA-nitrit negative negat [facility] Hospital L ab (Internal) : [address] ? ? UR - UA-prot negative negat Final [facility] Hospital L ab (Internal) : [address], [place] ? ? UR - UA-gluc negative negat Final [facility] ab (Internal) : [address] ? ? UR - UA-ketone negative negat [facility] [address] ? ? UR - UA-urobil normal bennie Final [place] [facility] ab (Internal) : [address] t ? ? UR - UA-bili negative negat Final [facility] ab (Internal) : [address] t ? ? UR - UA-blood negative negat Final [facility] ab (Internal) : [address] ? ? UR - UA-WBC 0-3 [hpf] 0-3 Final [place] [[facility]] [facility] (Internal) : [address] ? ? UR - UA-RBC 0-2 [hpf] 0-2 Final [place] [[facility]] [facility] (Internal) : [address] ? ? UR - UA-bacter none seen none Final Nor th ia [hpf] seen [facility] [hpf] [facility] (Internal) : [address] ? ? UR - UA-epithe none seen none Final Nor th lial [hpf] seen [facility] [[facility] (Internal) : [address] ? ? UR - UA-mucus none seen none Final Nort h [hpf] seen [facility] [hpf] [facility] (Internal) : [address] 07/29/2018 Culture UR - Final microbiology ? Final [place] ([place] results Country Count), Hospital Lab Urine (Internal) : [address] 05/28/2018 Pap Test, MISC - Pap see report ? Final [place] Thinprep, [facility] Cervical Hospital Lab (Internal) : [address] ? ? MISC - Report results below ? Final No rth [facility] (Internal) : [address] 04/03/2018 Streptococcu - Final microbiology ? F inal [place] s Group B, results Count ry Culture, Hospital Lab Vaginal or (Inter nal): Rectal [address] 01/24/2018 Venipuncture BLD ? Venpn* ? ? Final [place] Hospital L ab (Internal) : [address] 01/24/2018 CBC W/ Auto BLD High Wbc 10.2 10*3/uL 5.0-1 Fi nal [place] Diff 0.0 Country 10*3/ Hospital L ab uL (Internal) : [address] ? ? BLD Low Rbc 3.27 10*6/uL 4.10- Final Nort h 5.30 Country 10*6/ Hospital L ab uL (Internal) : [address] ? ? BLD Low Hgb 10.8 g/dL 12.0- Final [place] 16.0 Country g/dL Hospital L ab (Internal) : [address] [place] ? ? BLD Low Hct 32.6 % 37.0- Final [place] 47.0 Country % Hospital L ab (Internal) : [address] ? ? BLD High Mcv 99.7 fL 80.0- Final [place] 96.0 Country fL Hospital L ab (Internal) : [address] ? ? BLD High Mch 33.0 pg 26.0- Final [place] 32.0 Country pg Hospital L ab (Internal) : [address] ? ? BLD ? Mchc 33.1 g/dL 31.0- Final [place] 35.0 Country g/dL Hospital L ab (Internal) : [address] [place] ? ? BLD ? Rdw 13.1 % 11.5- Final [place] 14.5 Country % Hospital L ab (Internal) : [address] ? ? BLD ? Plt 241 10*3/uL 130-4 Final [place] 50 Country 10*3/ Hospital L ab uL (Internal) : [address] [place] ? ? BLD ? Anc 7.31 10*3/uL ? Final Nort h Country Hospital L ab (Internal) : [address] ? ? BLD ? Neutro 71.7 % 40.0- Final [place] 75.0 Country % Hospital L ab (Internal) : [address] ? ? BLD Low Lymph 19.7 % 20.0- Final [place] 50.0 Country % Hospital L ab (Internal) : [address] ? ? BLD ? [place] 5.2 % 2.0-1 Final [place] 0.0 % Country Hospital L ab (Internal) : [address] ? ? BLD ? Eos 2.1 % 1.0-6 Final North .0 % Country Hospital L ab (Internal) : [address] ? ? BLD ? Baso 0.4 % 0.0-1 Final North .0 % Country Hospital L ab (Internal) : [address] ? ? BLD ? Ig 0.9 % 0.0-0 Final [place] .9 % Country Hospital L ab (Internal) : [address] 01/24/2018 Glucose S ? Gluc, 1 101 mg/dL 70-14 Final [place] Tolerance hr Pp 0 Country Test, mg/dL Hospital L ab Gestational, (Int ernal): 1-Hour [address] t 11/06/2017 Venipuncture BLD ? Venpn* ? ? Final [place] Hospital L ab (Internal) : [address] 11/06/2017 CBC W/ Auto BLD ? Wbc 5.3 10*3/uL 5.0-1 Fin al [place] Diff 0.0 Country 10*3/ Hospital L ab uL (Internal) : [address], Jeth[place] t ? ? BLD Low Rbc 3.41 10*6/uL 4.10- Final Nort h 5.30 Country 10*6/ Hospital L ab uL (Internal) : [address] ? ? BLD Low Hgb 10.6 g/dL 12.0- Final [place] 16.0 Country g/dL Hospital L ab (Internal) : [address] ? ? BLD Low Hct 32.1 % 37.0- Final [place] 47.0 Country % Hospital L ab (Internal) : [address] ? ? BLD ? Mcv 94.1 fL 80.0- Final [place] 96.0 Country fL Hospital L ab (Internal) : [address] ? ? BLD ? Mch 31.1 pg 26.0- Final [place] 32.0 Country pg Hospital L ab (Internal) : [address] [place] ? ? BLD ? Mchc 33.0 g/dL 31.0- Final [place] 35.0 Country g/dL Hospital L ab (Internal) : [address] [place] ? ? BLD ? Rdw 13.5 % 11.5- Final [place] 14.5 Country % Hospital L ab (Internal) : [address] ? ? BLD ? Plt 202 10*3/uL 130-4 Final North 50 Country 10*3/ Hospital L ab uL (Internal) : [address] [place] ? ? BLD ? Anc 3.51 10*3/uL ? Final Nort h Country Hospital L ab (Internal) : [address] [place] ? ? BLD ? Neutro 65.9 % 40.0- Final [place] 75.0 Country % Hospital L ab (Internal) : [address], [place] ? ? BLD ? Lymph 22.2 % 20.0- Final [place] 50.0 Country % Hospital L ab (Internal) : [address], [place] ? ? BLD ? [place] 8.6 % 2.0-1 Final North 0.0 % Country Hospital L ab (Internal) : [address], [place] ? ? BLD ? Eos 2.3 % 1.0-6 Final North .0 % Country Hospital L ab (Internal) : [address], [place] ? ? BLD ? Baso 0.2 % 0.0-1 Final [place] .0 % Country Hospital L ab (Internal) : [address], [place] ? ? BLD ? Ig 0.8 % 0.0-0 Final North .9 % Country Hospital L ab (Internal) : [address] [place] 11/05/2017 Venipuncture BLD ? Venpn* ? ? Final [place] Hospital L ab (Internal) : [address] [place] 11/05/2017 Culture, BLD ? Final microbiology ? Final [place] Blood results Country Hospital L ab (Internal) : [address] [place] 11/05/2017 Culture, BLD ? Final microbiology ? Final [place] Blood results Country Hospital L ab (Internal) : [address] 11/05/2017 Lactic Acid, S ? [place] 1.1 mmol/L 0.7-2 Fin [facility] Blood .1 Country mmol/ Hospital L ab L (Internal) : [address] 11/05/2017 Urinalysis, UR ? UA-color yellow pale Final [place] Dipstick, [place] Country Reflex Micro w Hosp ital Lab (Internal) : [address] t ? ? UR ? UA-appear clear clear Final [facility] Hospital L ab (Internal) : [address] t ? ? UR ? UA-spec >=1.030 1.003 Final [place] Grav -1.03 Country 5 Hospital L ab (Internal) : [address] t ? ? UR ? UA-pH 5.5 [pH] 4.6-[address] [pH] Hospital L ab (Internal) : [address] t ? ? UR ? UA-leuk negative negat Final [facility] Hospital L ab (Internal) : [address] t ? ? UR ? UA-nitrit negative negat Final Nort h [facility] Hospital L ab (Internal) : [address] t ? ? UR ? UA-prot negative negat Final [facility] L ab (Internal) : [address] ? ? UR ? UA-gluc negative negat Final [facility] L ab (Internal) : [address] t ? ? UR ABNORM UA-ketone 2+ negat Final [facility] L ab (Internal) : [address] t ? ? UR ? UA-urobil normal bennie Final [facility] Hospital L ab (Internal) : [address] t ? ? UR ? UA-bili negative negat Final [facility] L ab (Internal) : [address] t ? ? UR ? UA-blood negative negat Final [facility] L ab (Internal) : [address] 11/05/2017 Neutrophil BLD ? Anc-manua 8.53 10*3/uL ? Final [place] [facility] Blood (Int ernal): [address] 11/05/2017 Differential BLD ? Polys 71 % 40-75 Final [place] , Manual, % [facility] Blood Hospital L ab (Internal) : [address] ? ? BLD High Bands 21 % 0-5 % Final [facility] Hospital L ab (Internal) : [address] ? ? BLD Low Lymphs 4 % 20-50 Final [facility] Hospital L ab (Internal) : [address] ? ? BLD ? [place] 4 % 2-10 Final [facility] Hospital L ab (Internal) : [address] ? ? BLD ? Eos 0 % 0-6 % Final [facility] Hospital L ab (Internal) : [address] ? ? BLD ? Baso 0 % 0-1 % Final [facility] Hospital L ab (Internal) : [address] ? ? BLD ? Atyp 0 % ? Final [place] Lymph [facility] Hospital L ab (Internal) : [address] ? ? BLD ? Plts, adequate adequ Final [place] Est. ate [facility] Hospital L ab (Internal) : [address] ? ? BLD ? RBC normal bennie Final [place] Morphology l Countr y Hospital L ab (Internal) : [address] 11/05/2017 CMP, Serum S ? g/r 100 mg/dL 74-10 Final [place] or Plasma 6 Country mg/dL Hospital L ab (Internal) : [address] ? ? S ? Bun 16 mg/dL 7-17 Final [place] mg/dL [facility] Hospital L ab (Internal) : [address] t ? ? S ? Crea 0.60 mg/dL 0.52- Final [place] 1.04 Country mg/dL Hospital L ab (Internal) : [address] t ? ? S ? Ca 8.9 mg/dL 8.4-1 Final [place] 0.2 Country mg/dL Hospital L ab (Internal) : [address] t ? ? S ? Na 137 mmol/L 137-1 Final [place] 45 Country mmol/ Hospital L ab L (Internal) : [address] t ? ? S ? K 4.1 mmol/L 3.5-5 Final [place] .1 Country mmol/ Hospital L ab L (Internal) : [address] t ? ? S ? Cl 102 mmol/L 98-10 Final [place] 7 Country mmol/ Hospital L ab L (Internal) : [address] t ? ? S Low Tco2 21.0 mmol/L 22.0- Final [place] 30.0 Country mmol/ Hospital L ab L (Internal) : [address] t ? ? S ? Tp 7.4 g/dL 6.3-8 Final [place] .2 [facility] g/dL Hospital L ab (Internal) : [address] t ? ? S ? Alb 4.1 g/dL 3.5-5 Final [place] .0 [facility] g/dL Hospital L ab (Internal) : [address] t ? ? S ? Tbil 0.8 mg/dL 0.2-1 Final [place] .3 [facility] mg/dL Hospital L ab (Internal) : [address] t ? ? S Low Alp 41 U/L 50-13 Final [place] 6 U/L Country Hospital L ab (Internal) : [address] t ? ? S ? Alt 17 U/L 9-52 Final [place] (Sgpt) U/L [facility] Hospital L ab (Internal) : [address] t ? ? S ? Ast 25 U/L 14-36 Final [place] (Sgot) U/L [facility] Hospital L ab (Internal) : [address] 11/05/2017 CBC W/ Auto BLD ? Wbc 9.3 10*3/uL 5.0-1 Fin al [place] Diff 0.0 Country 10*3/ Hospital L ab uL (Internal) : [address] t ? ? BLD ? Rbc 4.39 10*6/uL 4.10- Final Nort h 5.30 Country 10*6/ Hospital L ab uL (Internal) : [address] t ? ? BLD ? Hgb 13.7 g/dL 12.0- Final [place] 16.0 Country g/dL Hospital L ab (Internal) : [address] t ? ? BLD ? Hct 40.8 % 37.0- Final [place] 47.0 Country % Hospital L ab (Internal) : [address] t ? ? BLD ? Mcv 92.9 fL 80.0- Final [place] 96.0 Country fL Hospital L ab (Internal) : [address] t ? ? BLD ? Mch 31.2 pg 26.0- Final [place] 32.0 Country pg Hospital L ab (Internal) : [address] t ? ? BLD ? Mchc 33.6 g/dL 31.0- Final [place] 35.0 Country g/dL Hospital L ab (Internal) : [address] t ? ? BLD ? Rdw 13.5 % 11.5- Final [place] 14.5 Country % Hospital L ab (Internal) : [address] t ? ? BLD ? Plt 268 10*3/uL 130-4 Final [place] 50 Country 10*3/ Hospital L ab uL (Internal) : [address] 10/03/2017 CT RNA, MISC ? Specimen cervix ? Final No rth Qual, PCR, Descriptio Co untry Unspecified n Hospi juana Lab Specimen (Interna l): [address] t ? ? MISC ? Chlamydia negative ? Final Nort h Result [facility] Hospital L ab (Internal) : [address] t ? ? MISC ? GC Result negative ? Final [facility] [place] [facility] L [facility] (Internal) : [address] t 09/30/2017 RPR (Rapid BLD ? Obs RPR non-reactive non-r F inal [place] Plasma eacti Country Reagin), ve Hospital Lab Serum (Internal) : [address] t 09/30/2017 Rubella Ab, BLD ? Obs Rbla positive posit Fin al [place] Serum donald [facility] Hospital L ab (Internal) : [address] t 09/30/2017 HBsAg S ? Hep B negative negat Final Nort h (Hepatitis B Surface Ag Country Surface Ag), Hosp [facility] Lab Serum (Internal) : [address] t 09/30/2017 Venipuncture BLD ? Venpn* ? ? Final [facility] L ab (Internal) : [address] 09/30/2017 Urinalysis, UR ? UA-color yellow pale Final [facility] Hospital L ab (Internal) : [address] [place] ? ? UR ? UA-appear clear clear Final [facility] Hospital L ab (Internal) : [address] [place] ? ? UR ? UA-spec >=1.030 1.003 Final [place] Grav -1.03 Country 5 Hospital L ab (Internal) : [address] [place] ? ? UR ? UA-pH 6.0 [pH] 4.6-[address] [pH] Hospital L ab (Internal) : [address] [place] ? ? UR ? UA-leuk negative negat Final [facility] Hospital L ab (Internal) : [address] [place] ? ? UR ? UA-nitrit negative negat Final [facility] Hospital L ab (Internal) : [address] [place] ? ? UR ? UA-prot negative negat Final [facility] L ab (Internal) : [address] ? ? UR ? UA-gluc negative negat Final [facility] L ab (Internal) : [address] [place] ? ? UR ABNORM UA-ketone trace negat Final [facility] Hospital L ab (Internal) : [address] ? ? UR ? UA-urobil normal bennie Final [facility] Hospital L ab (Internal) : [address] ? ? UR ? UA-bili negative negat Final [facility] L ab (Internal) : [address] ? ? UR ? UA-blood negative negat Final [facility] L ab (Internal) : [address] ? ? UR ? UA-WBC 0-3 [hpf] 0-3 Final [place] [hpf] [facility] Hospital L ab (Internal) : [address] ? ? UR ? UA-RBC 0-2 [hpf] 0-2 Final [place] [[facility]] [facility] Hospital L ab (Internal) : [address] ? ? UR ? UA-bacter rare [hpf] none Final No rth ia seen Country [hpf] Hospital L ab (Internal) : [address] ? ? UR ABNORM UA-epithe few [hpf] none Final [place] lial seen Country [hpf] Hospital L ab (Internal) : [address] t ? ? UR ABNORM UA-mucus moderate none Final [place] AL [hpf] seen Country [hpf] Hospital L ab (Internal) : [address] 09/30/2017 Culture, UR ? Final microbiology ? Final [place] Urine results [facility] Hospital L ab (Internal) : [address] t 09/30/2017 Type + BLD ? Abo A ? Final [place] Screen, [facility] Serum Hospital L ab (Internal) : [address] t ? ? BLD ? Rh positive ? Final [facility] Hospital L ab (Internal) : [address] t ? ? BLD ? Ab Scrn negative negat Final [facility] Hospital L ab (Internal) : [address] 09/30/2017 Cbc BLD High Wbc 11.3 10*3/uL 5.0-1 Final [place] 0.0 Country 10*3/ Hospital L ab uL (Internal) : [address] t ? ? BLD Low Rbc 3.96 10*6/uL 4.10- Final Nort h 5.30 Country 10*6/ Hospital L ab uL (Internal) : [address] t ? ? BLD ? Hgb 12.3 g/dL 12.0- Final [place] 16.0 Country g/dL Hospital L ab (Internal) : [address] t ? ? BLD Low Hct 36.4 % 37.0- Final [place] 47.0 Country % Hospital L ab (Internal) : [address] t ? ? BLD ? Mcv 91.9 fL 80.0- Final [place] 96.0 Country fL Hospital L ab (Internal) : [address] t ? ? BLD ? Mch 31.1 pg 26.0- Final [place] 32.0 Country pg Hospital L ab (Internal) : [address] t ? ? BLD ? Mchc 33.8 g/dL 31.0- Final [place] 35.0 Country g/dL Hospital L ab (Internal) : [address] t ? ? BLD ? Plt 303 10*3/uL 130-4 Final [place] 50 Country 10*3/ Hospital L ab uL (Internal) : [address] ? ? BLD ? Rdw 12.5 % 11.5- Final [place] 14.5 Country % Hospital L ab (Internal) : [address] 09/30/2017 HIV (1+2) Ab S ? HIV 1/2 negative negat [facility] Screen, Antibody [facility] Serum Hospital L ab (Internal) : [address] 09/30/2017 Hepatitis C S ? Hep C Ab negative negat [facility] Virus Ab, W Rfx PCR Coun [facility] Serum Hospital L ab (Internal) : [address] 03/08/2017 Culture, UR ? Final microbiology ? Final [place] Urine results [facility] Hospital L ab (Internal) : [address] 03/08/2017 sensitivitie MISC ? Sens* ? ? Final [facility][I] [facility] Hospital L ab (Internal) : [address] 03/08/2017 Urinalysis, UR ? UA-color yellow pale Final [facility] Hospital L ab (Internal) : [address] ? ? UR ? UA-appear clear clear Final [facility] Hospital L ab (Internal) : [address] ? ? UR ? UA-spec 1.010 1.003 Final [place] Grav -1.03 Country 5 Hospital L ab (Internal) : [address] ? ? UR ? UA-pH 5.5 [pH] 4.6-8 Final [place] .0 Country [pH] Hospital L ab (Internal) : [address] ? ? UR ? UA-leuk negative negat Final [place] Est [facility] Hospital L ab (Internal) : [address] ? ? UR ? UA-nitrit negative negat Final Nort h e [facility] Hospital L ab (Internal) : [address] ? ? UR ? UA-prot negative negat Final [facility] Hospital L ab (Internal) : [address] t ? ? UR ? UA-gluc negative negat Final [facility] ab (Internal) : [address] ? ? UR ? [facility]one negative [facility]at [facility] [address] ? ? UR ? UA-urobil normal bennie Final [facility] (Internal) : [address] ? ? UR ? UA-bili negative negat Final [facility] ab (Internal) : [address] [place] ? ? UR ABNORM UA-blood moderate negat Final [facility] ab (Internal) : [address] [place] ? ? UR ? UA-WBC 0-3 [hpf] 0-3 Final [place] [[facility]] [facility] (Internal) : [address] ? ? UR ABNORM UA-RBC 3-5 [hpf] 0-2 Final [facility] [[facility] (Internal) : [address] ? ? UR ? UA-bacter none seen none Final Nor th ia [hpf] seen [facility] [[facility] (Internal) : [address] ? ? UR ? UA-epithe rare [hpf] none Final No rth lial seen [facility] [[facility] (Internal) : [address] ? ? UR ? UA-mucus none seen none Final Nort h [hpf] seen [facility] [[facility] (Internal) : [address] t Past Encounters 07/28/2020 Abnormal Uterine Bleeding Leonel Flores MD: [address] [place] [address], Ph. 06/30/2020 Care; Dysuria Leonel Flores MD: [address] [place] [id number], Ph. Social History Tobacco Smoking Status Never Smoker Vaccine List Vaccine Type DTaP 12/15/1997 DTP 1992 02/22/1993 05/05/1993 05/21/1994 Hep B, adolescent or pediatric 1992 1992 08/02/1993 04/06/201306/20/2013 11/25/2013 Hib (HbOC) 1992 02/22/1993 05/05/1993 02/13/1994 HPV, quadrivalent 04/18/2011 07/07/2011 02/08/2012 influenza, injectable, quadrivalent 06/15/2020 influenza, seasonal, injectable 06/27/2016?0.5 mL 06/20/2017?0.5 mL 06/17/2018?0.5 mL 06/16/2019?0.5 mL meningococcal MCV4P 04/18/2011 MMR 02/13/1994 11/03/1998 OPV 1992 02/22/1993 05/05/1993 05/21/1994 12/15/1997 Tdap 07/30/2006 03/07/2016?0.5 mL 03/14/2018?0.5 mL 04/13/2020?0.5 mL varicella 10/12/1996 07/30/2006 04/06/2013 06/20/2013 Plan of Care Reminders Provider Appointments None ? ? recorded. Lab None ? ? recorded. Referral None ? ? recorded. Procedures None ? ? recorded. Surgeries None ? ? recorded. Imaging None ? ? recorded. Vitals 06/30/2020 02:10PM Post 20 Height Weight BMI Blood Pressure 157.48 cm 50.85 kg 20.5 kg/m2 106/62 mm[Hg] 05/11/2020 02:40PM OB 20 Weight Blood Pressure 55.48 kg 118/72 mm[Hg] 04/25/2020 01:50PM OB 10 Weight Blood Pressure 56.5 kg 106/58 mm[Hg] 04/13/2020 01:20PM OB 10 Weight Blood Pressure 55.79 kg 104/60 mm[Hg] 03/21/2020 02:50PM OB 10 Weight Blood Pressure 55.45 kg 110/62 mm[Hg] 02/25/2020 03:20PM OB 10 Weight Blood Pressure 55.14 kg 108/60 mm[Hg] 12/17/2019 03:20PM OB 10 Weight Blood Pressure 53.27 kg 116/68 mm[Hg] 11/16/2019 01:30PM New OB Weight Blood Pressure 51.71 kg 116/60 mm[Hg] 07/15/2019 03:20PM HME 20 Height Weight BMI Blood Pressure 157.48 cm 48.58 kg 19.6 kg/m2 102/64 mm[Hg] 01/15/2019 08:40AM Office [facility] 40 Height Weight BMI Blood Pressure 157.48 cm 45.98 kg 18.5 kg/m2 110/60 mm[Hg] 05/28/2018 02:20PM Post 20 Height Weight BMI Blood Pressure 157.48 cm 48.22 kg 19.4 kg/m2 104/60 mm[Hg] 04/09/2018 04:00PM OB 10 Weight Blood Pressure 57.61 kg 100/58 mm[Hg] 04/03/2018 03:40PM OB 10 Weight Blood Pressure 57.72 kg 100/62 mm[Hg] 03/27/2018 04:20PM OB 10 Weight Blood Pressure 57.66 kg 98/54 mm[Hg] 03/14/2018 03:50PM OB 10 Weight Blood Pressure 56.81 kg 104/62 mm[Hg] 02/27/2018 03:30PM OB 10 Weight Blood Pressure 55.48 kg 94/50 mm[Hg] 06/19/2017 Height Weight Blood Pressure 157.48 cm 47.69 kg 102/58 mm[Hg] 10/22/2016 Blood Pressure 90/60 mm[Hg] 08/30/2016 Height Weight Blood Pressure 158.75 cm 46.27 kg 110/70 mm[Hg] 06/18/2016 Height Weight Blood Pressure 157.48 cm 48.08 kg 100/60 mm[Hg] 11/28/2015 Height Weight Blood Pressure 157.48 cm 54.93 kg 90/50 mm[Hg] 10/26/2015 Weight Blood Pressure 53.89 kg 102/64 mm[Hg]
[2021-11-22 15:23] VITALS: BP 114/63; PULSE 81; TEMP 36.8
[2021-11-22 15:28] LABS: HCT 29.6 % (36.0-46.0); HGB 9.4 g/dL (11.2-15.7); MCH 29.8 pg (27.0-33.0); MCHC 31.8 % (32.0-36.0); MPV 8.6 fL (8.0-11.0); Platelet Count 269 10^3/uL (130-400); RBC 3.15 10^6/uL (3.93-5.22); RDW 15.6 % (11.7-14.6); RDW-SD 49.2 fL; WBC 9.24 10^3/uL (4.4-10.8)
[2021-11-22 15:41] LABS: AST 14 U/L (15-37); Albumin 2.8 g/dL (3.4-5.0); Alkaline Phosphatase 107 U/L (46-116); Anion Gap 13.1 mmol/L (3-11); BUN 11 mg/dL (7-18); Bilirubin, Total 0.4 mg/dL (0.2-1.0); CO2 20.9 mmol/L (21.0-32.0); CREATININE 0.6 mg/dL (0.55-1.02); Calcium 8.4 mg/dL (8.5-10.1); Chloride 103 mmol/L (98-107); Glucose 77 mg/dL (74-106); Potassium 3.9 mmol/L (3.5-5.1); Sodium 137 mmol/L (136-145); Total Protein 6.5 g/dL (6.4-8.2)
[2021-11-22 15:48] LABS: ALT < 6 U/L (14-59)
[2021-11-22 16:03] LABS: Hemoglobin A1C 5.6 % (<5.7)
[2021-11-22 16:25] VITALS: BP 114/63; PULSE 81; TEMP 36.8
--- NOTE | 2021-11-22 16:25 | W.OBNST ---
Date of service: 11/22/21 Time of Service: 16:25 NST Evaluation Reason for NST Reasons for Nonstress Test: GDM-DIET CONTROLLED Gestational Age Gestational Age in Weeks and Days: 37 Weeks and 5Days Test and Monitor Explained Test/Monitor Explained: Test Explained, Monitor Explained and Patient Verbalized Understanding Vital Signs Blood Pressure: 114/63 Pulse: 81 Temperature: 98.2 F Urine Results Urine Protein: Negative Urine Ketones: Positive Urine Glucose: Negative Urine Blood: Negative NST Information Date on Monitor: 11/22/21 Time on Monitor: 14:32 Date off Monitor: 11/22/21 Time off Monitor: 15:21 Total Time on Monitor: 49 NST Interventions: PO Hydration and Other NST Evaluation Patient States Movement: Present FHR Baseline: 125 Variability: Moderate 6-25 bpm Accelerations: 15x15 Decelerations: None NST Results: Reactive Note NST Note NST Reviewed and Verified by: Radha Lawton
[2021-11-22 16:28] LABS: COMMENT (LAB VIEW ONLY) 18.27 mg/dL; PROTEIN < 6.0 mg/dL
== END 2021-11-22 16:20 ==
LOC: LBN 14:40 → OBS 15:00
PROVIDERS: Visit Provider Advanced Practice Midwife
DX: O24.410 Gestational diabetes mellitus in pregnancy, diet controlled (principal); Z3A.37 37 weeks gestation of pregnancy
CPT/HCPCS: 59025; 80053; 85027; 82565; 83036; 84156; 84550

== ENCOUNTER 2021-11-25 13:55 | Inpatient (IN) | payer OTHER, SELFPAY ==
[2021-11-25] VITALS (8 sets, daily range): BP systolic 100–110; BP diastolic 53–64; PULSE 69–97; RESP 16; TEMP 36.4–36.9; O2SAT 97–100
--- NOTE | 2021-11-25 14:02 | W.PM.OBHPL1 ---
Date of service: 11/25/21 Time of Service: 14:02 Assessment and Plan Assessment and plan (1) 38 weeks gestation of : Status: Acute (2) PROM with onset of labor more than 24 hours following rupture: Status: Acute Assessment and plan: A: 31 yo @ 38+1 wks, pelvis proven to 7'1 PROM of uncertain time yesterday afternoon, confirmed via SSE Favorable cvx @ 5-6/50% mid & soft, vtx -3 Category 1 tracing GDM diet controlled, AGA growth GBS negative, Rh+, Varicella Non-Immune Low risk for SD and PPH P: Admit to for induction of labor for PROM at term Will provide PCN prophylaxis during labor for ROM >24 hrs T&S, CBC, COVID swab Begin pitocin induction per guidelines Anticipate Dr. Boyce available for consult as needed (3) Gestational diabetes: Status: Acute Assessment and plan: Diet controlled, pt using CGM OB-HPI Labor/Delivery History of Present Illness Reason for Visit: Induction of labor Chief Complaint: Suspected Rupture of Membranes , Associated Signs and Symptoms of Suspected ROM: Pt is uncertain exactly what time she noticed increased watery vaginal discharge, estimates between [id number] yesterday afternoon. No bleeding, no recent coitus, lots of irregular irritating contractions since yesterday.. JOHN Calculator Estimated Delivery Date Method Current WG Current Estimate 12/08/21 Ultrasound #1 38w 1d Other Estimates 11/28/21 LMP (Certain) 39w 4d History of Present Expected Delivery Route/Plan - CNM, may want to meet MD's in case FOB - Phil Schrader (1st together, has three other children, 1 twin with autism) GBS neg BG - Estrella Murphy Varicella Non-Immune - offer vaccine PP GDM after 27 wks, diet controlled Specific Issues/Plan 1. History of frequent UTI - treated 04/16 with macrobid x 7 days 1a. symptomatic and hematuria - treated with macrobid x 10 days 05/30. culture sent, cranberry tablets recommended 1b. UTI - pos. e.coli - treated with macrobid x 10 days. 2. Family history of ASD- patient's sister, offered Level 2 - chooses [place] ultrasound 3. Declines serum genetic testing. 4. Faiza declines covid vaccine, partner Phil is vaccinated. 5. Heart murmur - referred to her PCP for evaluation. 6. Varicella non immune - discuss w/pt, offer vaccine PP 7. Reports umbilical hernia and diastasis, she will meet with surgeon. Declines PT referral until PP.-maternity support recommended, 8. Anemia @ 27 wks: hgb 10.5, review diet and start iron supplementation 9. Glucola 160 @ 27 wks. 3 hr GTT done out of [facility] on 10/16/21: 11a. patient reported 3 hour levels, 68/150/162/149; GDM Dx, begin home monitoring 11b. will start doing 4 times daily glucose checks and bring log 10/27/21 11c. Plan for wt & BHARATH ultrasound @ 36 wks. Done 11/07: 38th percentile, BHARATH=14.4 10. PTL with cvx exam at 3-4/80% on 11/06, celestone given 11/07 & 11/08, GBS pending, stop working. Assessment: History Reviewed & Current Informed Consent Informed Consent: Induction of Labor and Risk,Benefits,Alternatives Discussed Review of Systems All systems reviewed & are unremarkable except as noted in HPI and below Constitutional Comments: Well appearing female in minor discomfort periodically, coping well with mild contractions. Cardiovascular Cardiovascular: Reports system reviewed and no additional complaints, except as documented Respiratory Respiratory: Reports system reviewed and no additional complaints, except as documented Gastrointestinal Gastrointestinal: Reports nausea and Reports vomiting Musculoskeletal Comments: Back and hips have been sore Endocrine Comments: GDM diet controlled, using CGM for several months, started fingersticks for fasting glucose over the past few days, results have been in 70's. PFSH All Active Problems (Updated 11/25/21 @ 13:56 by Radha Lawton) 38 weeks gestation of (Acute) PROM with onset of labor more than 24 hours following rupture (Acute) Dehydration during (Acute) Ketonuria (Acute) Gestational diabetes (Acute) diet controlled Rectus diastasis of lower abdomen (Acute) Susceptible to varicella (non-immune), currently (Acute) Nausea and vomiting during (Acute) Medical History (Updated 11/25/21 @ 13:56 by Radha Lawton) Dysuria during Family history of thyroid disease History of migraine Hx of recurrent urinary tract infection Hx of urinary tract infection Irregular uterine contractions At 35 weeks Ocular migraine uterine contractions in third trimester, antepartum at 35 weeks Family History Sister Thyroid disorder graves disease Father Depression Anxiety Maternal Grandmother Heart disease Social History Smoking risk assessment performed?: No History History 4 Para 3 Hx # Term Pregnancies 3 Multiple births 0 Hx # Pregnancies 0 Ectopic pregnancies 0 AB induced 0 Hx Number of Living Children 3 AB spontaneous 0 Past Pregnancies Del. Date GA/Weeks # Outcome Route Wgt Sex Labor Lgth Anesthesia Location Prov Compl 05/02/16 40 No Successful vaginal 7 lb Female [facility] 04/16/18 38 No Successful vaginal 6 lb 8 oz Male 4 [facility] 05/19/20 37 No Successful vaginal 7 lb 1 oz Male 3 hours [facility] Delivery Date: 05/02/16 Last Updated by: Alaina Link CNM planned induction at 40 weeks. [place] Delivery Date: 04/16/18 Last Updated by: Alaina Link CNM AROM, Chris Delivery Date: 05/19/20 Last Updated by: Alaina Link CNM Luke PROM, IOL Meds Allergies and Home Medications Allergies Allergy/AdvReac Type Severity Reaction Status Date / Time No Known Allergies Allergy Verified 11/22/21 14:15 Home Medications Medication Instructions Recorded Confirmed Type PNV 153-FA 400 mcg-om3 35 mg-dha 1 tab PO BID tab 04/14/21 11/22/21 History 25 mg-epa 5 mg-fish oil chew tablet ( Gummies) ondansetron HCl 4 mg tablet 4 mg PO Q8H PRN #45 tab 10/12/21 11/22/21 Rx alcohol swabs (Alcohol Pads) 1 pad TOPICAL .4 times daily #200 10/19/21 11/22/21 Rx ea blood sugar diagnostic (Blood #100 ea 10/19/21 11/22/21 Rx Glucose Test) blood-glucose meter #1 ea 10/19/21 11/22/21 Rx lancets 26 gauge #200 ea 10/19/21 11/22/21 Rx Exam Physical Exam Vital signs: Pulse BP 75 100/56 L 11/25/21 13:05 11/25/21 13:05 Vital Signs Reviewed: Yes Constitutional Constitutional: mild distress and thin Detailed Labor and Delivery Exam Dilation: 5 Effacement (%): 50 station: -3 Cervix position: mid Consistency: soft ALLAN Score(Cervical Ripeness Score): 7 Amniotic Membrane Status: Ruptured Rupture Method: Spontaneous Amniotic Fluid: Clear Pooling: Positive Nitrazine: Positive Ferning: Present Monitor Mode: External Contraction Frequency(min): irregular, mild Fetus A Heart Rate Baseline: 125 Monitor Accelerations: 15 X 15 Monitor Decelerations: None Variability: Moderate (6-25 BPM) Presentation: Cephalic Categories: Category I Est. Weight: 6 lb 13.349 oz Est. Weight: 3100 gms Date of Membrane Rupture: 11/24/21 Time of Membrane Rupture: 15:00 (uncertain of exact time, pt reports between 1300 -1700) HEENT Exam HEENT Exam: Normal Neck Exam Neck Exam: Normal Chest/Brest/Axilla Exam Chest Exam: Normal Breast Exam Breast Exam: Not Done Respiratory Exam Respiratory Exam: Normal Cardiovascular Exam Cardiovascular Exam: Normal Abdominal Exam Abdominal Exam: Normal (gravid, soft, nontender) Exam Exam: Normal Extremities Exam Extremities Exam: Normal Back/Spine/Pelvis Exam Back Exam: Normal Pelvis Adequate: Yes Skin Exam Skin Exam: Normal Neurological Exam Neurological Exam: Normal Psychiatric Exam Psychiatric Exam: Normal Results Results Group Beta Strep: Negative Blood Type: A+ Rubella Status: Immune Varicella Immunity: Nonimmune Risk Assessment Risk for Shoulder Dystocia Historical/Initial OB: NEGATIVE FOR: Pelvic Abnormality, Pre- BMI>30, Previous Shoulder Dystocia or Previous Macrosomia Increased Risk?: No Date/Initial: 11/06/21 Delivery Plan @ 36wks: NVD expected. Risk for Pre-Eclampsia Daily Dose ASA Indicated: No Yes, if one or more: NEGATIVE FOR: Hx Pre-E/Gest HTN, Chronic HTN, Multiple Gestation, Pre-gestational DM, Renal Disease, Systemic Lupus or APA Syndrome Yes, if 2 or more: NEGATIVE FOR: Nulliparity, Age>= 35 yrs, >10yr btwn pregnancies, BMI>30, ethinicty, Mother/Sister w/ Pre-E or Previous IUGR Risk for Post- Hemorrhage Initial: NEGATIVE FOR: Multiple Gestation, Previous PPH, Known Clotting Deficiency, Grand Multiparity or Anticoagulation At Risk?: No Counseled re: Active Management: Yes Risks Reviewed Risks Reviewed Upon Admission: Yes
[2021-11-25 14:26] LABS: HCT 33.5 % (36.0-46.0); HGB 10.5 g/dL (11.2-15.7); MCH 29.1 pg (27.0-33.0); MCHC 31.3 % (32.0-36.0); MCV 92.8 fL (80-95); MPV 8.7 fL (8.0-11.0); Platelet Count 273 10^3/uL (130-400); RBC 3.61 10^6/uL (3.93-5.22); RDW 15.9 % (11.7-14.6); RDW-SD 50.8 fL; WBC 9.66 10^3/uL (4.4-10.8)
[2021-11-25] MEDS: Normal Saline Flush 10 ML SYR IVP (14:31)
[2021-11-25] MEDS: Lactated Ringers 1,000 ML 125 ML IV ×2 (14:32→23:03)
[2021-11-25] MEDS: Oxytocin/Normal Saline 30 UNIT/500 ML BAG 2 UNITS IV (14:35)
[2021-11-25 14:57] LABS: Glucose 67 mg/dL (74-106)
[2021-11-25] MEDS: Penicillin G POT. 5,000,000 UNITS in Normal Saline 100 ML 200 UNITS IVPB (15:06)
[2021-11-25] MEDS: Ondansetron 4 MG/2 ML VIAL 8 MG IVP (15:10)
[2021-11-25 15:28] LABS: Source Nasal/Nares
[2021-11-25 16:06] LABS: COVID-19 PCR Negative (Negative)
[2021-11-25] MEDS: Penicillin G POT. 3,000,000 UNITS in Normal Saline 50 ML 100 UNITS IVPB ×2 (19:18→23:13)
--- NOTE | 2021-11-25 19:52 | PGE_ITS ---
Date of service: 11/25/21 Time of Service: 19:52 Informed Consent Informed Consent: Induction of Labor and Risk,Benefits,Alternatives Discussed Pelvic Exam Dilation: 6 Effacement (%): 70 station: -2 Position: LOP Cervix Position: mid Consistency: soft Vaginal Exam Presentation: Cephalic Contractions Monitor Mode: External Contraction Frequency(min): q3 min Contraction Duration(sec): 60-80 Intensity: Moderate Fetus A Monitor: External (US) Heart Rate Baseline: 125 Variability: Moderate (6-25 BPM) Categories: Category I Accelerations: 15 X 15 Decelerations: None (rare variable has been noted) Amniotic Membrane Status: Ruptured Assessment and Plan Assessment and plan (1) PROM with onset of labor more than 24 hours following rupture: Status: Acute Assessment and plan: A: PROM >24 hrs, GBS neg Adequate PCN prophylaxis Pitocin induction in multipara Labor beginning to progress P: Continue with current plan of care Comfort measures as requested Anticipate (2) Anemia affecting in third trimester: Status: Acute Assessment and plan: Admission hgb 10.5 Has received iron infusion for hgb <10 last week Active management of third stage planned IV access established Objective Abnormal lab results 11/25/21 11/25/21 Range/Units 14:15 14:15 RBC 3.61 L (3.93-5.22) 10^6/uL Hgb 10.5 L (11.2-15.7) g/dL Hct 33.5 L (36.0-46.0) % MCHC 31.3 L (32.0-36.0) % RDW 15.9 H (11.7-14.6) % Glucose 67 L (74-106) mg/dL Temp Pulse Resp BP Pulse Ox 97.9 F 97 H 16 110/64 99 11/25/21 19:24 11/25/21 19:24 11/25/21 19:24 11/25/21 19:24 11/25/21 19:24 Laboratory Results WBC 9.66 10^3/uL (4.4-10.8) 11/25/21 14:15 RBC 3.61 10^6/uL (3.93-5.22) L 11/25/21 14:15 Hgb 10.5 g/dL (11.2-15.7) L 11/25/21 14:15 Hct 33.5 % (36.0-46.0) L 11/25/21 14:15 MCV 92.8 fL (80-95) 11/25/21 14:15 MCH 29.1 pg (27.0-33.0) 11/25/21 14:15 MCHC 31.3 % (32.0-36.0) L 11/25/21 14:15 RDW 15.9 % (11.7-14.6) H 11/25/21 14:15 Plt Count 273 10^3/uL (130-400) 11/25/21 14:15 MPV 8.7 fL (8.0-11.0) 11/25/21 14:15 Glucose 67 mg/dL (74-106) L 11/25/21 14:15 COVID-19 Source Nasal/Nares 11/25/21 14:30 SARS-CoV-2 (PCR) Negative (Negative) 11/25/21 14:30 Patient ABO/Rh A Positive 11/25/21 14:15 Antibody Screen NEGATIVE 11/25/21 14:15 Objective Narrative Objective Narrative: 2nd dose of PCN prophyalxis infusing now Pitocin infusion @ 10 mu/min Pt coping well with contractions, Effective support from FOB at bedside Pt has used physioball, H&K on floor mat, now LLP in bed Reaffirms desire for unmedicated labor Subjective Interval history since last seen: Contractions are increased in frequency and gaining strength but are still man ageable for her. Moving around room changing positions, tolerating PO intake well.
[2021-11-26] VITALS (12 sets, daily range): BP systolic 101–120; BP diastolic 56–70; PULSE 58–85; RESP 16; TEMP 36.5–36.9; O2SAT 95–98
[2021-11-26] MEDS: Oxytocin/Normal Saline 30 UNIT/500 ML BAG 95 UNITS IV (00:56)
--- NOTE | 2021-11-26 01:16 | W.OBDELIVERY ---
Date of service: 11/26/21 Time of Service: 01:17 OB Labor/ Delivery Information Baby A Delivery Delivery Method: Spontaneaous Presentation: Cephalic Cephalic Position: Vertex (Delivered OA with transverse shoulders) Breech Position: N/A Cord Description-Baby A: 3 Vessels Amniotic Fluid: Clear Estimated Blood Loss: 100 Delivery Outcome: Liveborn Transferred: Remains with Mother Note: Pt using nitrous and began involuntarily bearing down, Pitocin at 15 mu/min, SVE for 8 cm dilation with forebag bulging, AROM for clear fluid, 2nd stage huddle completed with category 1 tracing continuing. Pt then progressed rapidly to full dilation with boudreaux delivery of head, transverse shoulders came easily over intact perineum and vigorous female infant placed in mothers arms immediately. pitocin infusion bolus begun, cord ceased pulsating and was clamped then cut by FOB @ 6-7 minutes . Cord blood collected, Hernandez placenta intact with 3VC. No lacerations noted on thorough inspection, fundus firm below umbilicus, minimal rubra, no clots on vaginal sweep. Apgars 9/9, weight 3035 gms. Providers Nurse Product Support Manager: Radha Lawton Nurse: Darrion Shay Nurse: Dorie Samayoa Labor/Delivery Information Number of Babies in Womb: 1 Steroids Given: None Reason Steroids Not Administered: N/A Group Beta Strep: Negative Antibiotics Administered: Yes Number of Doses of Antibiotics: 3 Rubella Status: Immune Blood Type: A+ Varicella Immunity: Nonimmune Maternal Complications: Premature Rupture of Membranes Shoulder Dystocia: No Stages of Labor Onset of Labor Date: 11/25/21 Onset of Labor Time: 22:57 Complete Dilatation Date: 11/26/21 Complete Dilatation Time: 00:53 Labor - Stage 1 Duration: 24 hours and 0 minutes ROM Baby A: 11/24/21 ROM Baby A: 15:00 (uncertain of exact time, pt reports between 1300 -1700) Delivery Date-Baby A: 11/26/21 Infant Delivery Time-Baby A: 00:55 Labor Stage 2 Duration: 2 minutes Placenta Delivery Date-Baby A: 11/26/21 Placenta Delivery Time-Baby A: 01:04 Labor-Stage 3 Duration: 9 minutes Total Length of Labor-Baby A: 1 hours and 58 minutes Placenta Cultured: No Placenta Status: Delivered Baby A Infant Gender: Female Gestational Status: Early Term (37-38.6 wks) Gestational Age in Weeks/Days: 38 Weeks and 2 Days weight: 6 lb 11.056 oz Weight Comment: 3035 gms Score-1 Minute Interval(Baby A) Heart Rate-1 minute: 100 BPM or Greater Respiratory Effort- 1 minute: Spontaneous/Strong Cry Muscle Tone-1 minute: Active Movement Reflex Response-1 minute: Prompt Response Color-1 minute: Bluish Hands or Feet Total Score-1 minute: 9 Score-5 Minute Interval(Baby A) Heart Rate- 5 minute: 100 BPM or Greater Respiratory Effort-5 minute: Spontaneous/Strong Cry Muscle Tone-5 minute: Active Movement Reflex Response-5 minute: Prompt Response Color-5 minute: Bluish Hands or Feet Total Score- 5 minute: 9
[2021-11-26] MEDS: Acetaminophen 325 MG TAB 650 MG PO ×2 (08:50→18:29)
[2021-11-26] MEDS: Ibuprofen 600 MG TAB PO ×2 (08:51→18:29)
--- NOTE | 2021-11-27 07:23 | W.PM.OBPNV1 ---
Date of service: 11/27/21 Time of Service: 07:23 Assessment and Plan Assessment and plan (1) Term delivered: Status: Acute Assessment and plan: A: nml PPD#1 off to a good start Pt pleased with experience P: Pt desires discharge today Will given Varicella vaccine prior to discharge Pt to begin oral iron suppplementation after 1st BM Written instructions reviewed and given to pt Plans NFP for BCM; reminded to f/up with PCP for heart murmur & umbilical hernia F/up at 2 & 6 wks; may discontinue sugar monitoring Will schedule 2 hr GTT after 6 wk appt Pt reports PAP was done at [facility] 2 yrs ago and was nml (2) Anemia: Status: Chronic Assessment and plan: To resume PNV and iron supplement after first BM Will recheck hgb in 2 wks Subjective Subjective Patient comments: Pain well controlled, Tolerating diet and Flatus present Patient's Mood: happy [place] baby status: Doing well, Nursing well, Rooming in and Strong Bonding Observed feeding status: Exclusively breast feeding Exam Physical Exam Vital signs: Temp Pulse Resp BP Pulse Ox 98.1 F 58 L 16 107/70 98 11/26/21 20:04 11/26/21 20:04 11/26/21 20:04 11/26/21 20:04 11/26/21 20:04 Vital Signs Reviewed: Yes Constitutional Constitutional: no acute distress and thin HEENT Exam HEENT Exam: Normal Neck Exam Neck Exam: Normal Breast Exam Bilateral: Breast Exam: Normal and Soft Nipple Exam: Normal and Uninjured Respiratory Exam Respiratory Exam: Normal Cardiovascular Exam Cardiovascular Exam: Normal Abdominal Exam Abdomen: Other (soft, nontender, small umbilical hernia noted (known)) Fundal Exam Fundus: Below Umbilicus and Firm Rectal Exam Rectal Exam: Normal Exam Perineum: Intact and Normal Extremities Exam Extremity Exam: Normal, Full ROM, Normal Capillary Refill and Warm to Touch Back/Spine/Pelvis Exam Back Exam: Normal Skin Exam Skin Exam: Normal Neurological Exam Neurological Exam: Normal Psychiatric Exam Psychiatric Exam: Normal Results Hemoglobin/Hematocrit: Hgb 10.5 g/dL (11.2-15.7) L 11/25/21 14:15 Hct 33.5 % (36.0-46.0) L 11/25/21 14:15 Abnormal Lab Findings: Abnormal Labs 11/25/21 11/25/21 14:15 14:15 RBC 3.61 L Hgb 10.5 L Hct 33.5 L MCHC 31.3 L RDW 15.9 H Glucose 67 L
--- NOTE | 2021-11-27 08:03 | DSE_ITS ---
Date of service: 11/27/21 Time of Service: 08:03 DS: Diagnosis Discharge Diagnosis (1) Term delivered: Status: Acute Asessment and Plan: F/up at 2 & 6 wks (2) Anemia: Status: Chronic Asessment and Plan: resume iron supplement Discharge Plan Disposition Patient Disposition: HOME Condition: Good Discharge Details Reason For Visit: Induction of labor Admit Date/Time: 11/25/21 13:55 Admit Provider: Radha Lawton Attending Provider: Radha Lawton Primary Care Provider: Unknown,Unknown Hospital Course Hospital Course: Induction begun, several hours later, nml course Home Meds and New Rx's Prescriptions: No Action Gummies 400 mcg-35 mg- 25 mg-5 mg tablet,chewable 1 tab PO BID 0RF ondansetron HCl 4 mg tablet 4 mg PO Q8H PRN (Reason: nausea and vomiting) Qty: 45 0RF (DME) blood-glucose meter Kit See Rx Instructions .ROUTE .MEDSUPPLY Qty: 1 0RF Rx Instructions: 4 times daily (DME) Blood Glucose Test Strip See Rx Instructions .ROUTE .MEDSUPPLY Qty: 100 2RF Rx Instructions: 4 times daily alcohol swabs [Alcohol Pads] Pads, Medicated 1 pad topical .4 times daily Qty: 200 1RF (DME) lancets 26 gauge misc See Rx Instructions .ROUTE .MEDSUPPLY Qty: 200 1RF Rx Instructions: 4 times daily Discharge Instructions Additional Instructions: Please keep your 2 & 6 wk appointments with your dining services manager. If you consented to Varicella vaccination prior to going home today, your second injection will be given at your 6 week visit. Please call for any and all concerns or questions. Also please resume taking daily iron supplements in addition to your vitamins until after your 6 week visit. Stand Alone Forms: BC Instructions, BC Post Vaginal Deliver Activity:: Activity as Tolerated Equipment/Supplies:: No Equipment Needed Diet:: Normal Diet Discharge Orders Discharge Orders: Discharge Order (Routine); Ordered 11/27/21 Ordered By: Radha Lawton Discharge Data Discharge Date/Time-TO BE ENTERED AT DEPARTURE: 11/27/21 08:02 OB:DS Summary Summary Vaginal Delivery Method: Spontaneaous Episiotomy Description: None Laceration Description: None Laceration Extension: N/A Contraception Discussed Contraception Discussed: Yes Contraceptive Plan: Not planning to use, [place] Gender-Baby A: Female weight: 6 lb 11.056 oz Status at Discharge Functional status at discharge: independent ambulation Overall status at discharge: patient is not back to baseline Mental Status: mental status grossly normal Speech and Movement: speech and movement normal and speech clear Mood: congruent mood Affect: normal affect Exam Physical Exam Vital signs: Temp Pulse Resp BP Pulse Ox 98.1 F 58 L 16 107/70 98 11/26/21 20:04 11/26/21 20:04 11/26/21 20:04 11/26/21 20:04 11/26/21 20:04 Vital Signs Reviewed: Yes Constitutional Constitutional: no acute distress and thin HEENT Exam HEENT Exam: Normal Neck Exam Neck Exam: Normal Breast Exam Bilateral: Breast Exam: Normal and Soft Respiratory Exam Respiratory Exam: Normal Cardiovascular Exam Cardiovascular Exam: Normal Abdominal Exam Abdomen: Other (soft, nontender, small umbilical hernia noted (known)) Fundal Exam Fundus: Below Umbilicus and Firm Rectal Exam Rectal Exam: Normal Exam Perineum: Intact and Normal Extremities Exam Extremity Exam: Normal, Full ROM, Normal Capillary Refill and Warm to Touch Back/Spine/Pelvis Exam Back Exam: Normal Skin Exam Skin Exam: Normal Neurological Exam Neurological Exam: Normal Psychiatric Exam Psychiatric Exam: Normal PFSH All Active Problems (Updated 11/27/21 @ 07:30 by Radha Lawton) Anemia (Chronic) Term delivered (Acute) Rectus diastasis of lower abdomen (Acute) Susceptible to varicella (non-immune), currently (Acute) Medical History (Updated 11/27/21 @ 07:30 by Radha Lawton) 38 weeks gestation of Anemia affecting in third trimester Dehydration during Dysuria during Family history of thyroid disease Gestational diabetes diet controlled History of migraine Hx of recurrent urinary tract infection Hx of urinary tract infection Irregular uterine contractions At 35 weeks Ketonuria Nausea and vomiting during Ocular migraine uterine contractions in third trimester, antepartum at 35 weeks PROM with onset of labor more than 24 hours following rupture Family History Sister Thyroid disorder graves disease Father Depression Anxiety Maternal Grandmother Heart disease Social History Smoking/Tobacco Use Status: Never Smoking risk assessment performed?: Yes Alcohol Intake: never Drug use: Never Substance use type: does not use Do you feel safe at home: Yes Do you feel safe in your relationship?: Yes History History 4 Para 3 Hx # Term Pregnancies 3 Multiple births 0 Hx # Pregnancies 0 Ectopic pregnancies 0 AB induced 0 Hx Number of Living Children 3 AB spontaneous 0 Past Pregnancies Del. Date GA/Weeks # Outcome Route Wgt Sex Labor Lgth Anesthes ia Location [facility] 05/02/16 40 No Successful vaginal 7 lb Female [facility] 04/16/18 38 No Successful vaginal 6 lb 8 oz Male 4 [facility] 05/19/20 37 No Successful vaginal 7 lb 1 oz Male 3 hours [facility] Delivery Date: 05/02/16 Last Updated by: Alaina Link CNM planned induction at 40 weeks. [place] Delivery Date: 04/16/18 Last Updated by: Alaina Link CNM AROM, Chris Delivery Date: 05/19/20 Last Updated by: Alaina Link CNM Luke PROM, IOL DS: Data Vitals/I&O Vitals and I&O: Vital Signs Temperature 98.1 F 11/26/21 20:04 Pulse 58 L 11/26/21 20:04 Pulse Rhythm Regular 11/26/21 20:00 Respiratory Rate 16 11/26/21 20:04 Respiratory Depth Normal 11/26/21 20:00 Blood Pressure 107/70 11/26/21 20:04 Blood Pressure Mean 82 11/26/21 20:04 Pulse Oximetry 98 11/26/21 20:04 Oxygen Delivery Method Room Air 11/25/21 14:05 Oxygen Flow Rate 0 11/25/21 14:05 Pain Level 5 11/26/21 18:29 Intake & Output 11/26/21 11/26/21 11/27/21 11:59 23:59 11:59 Intake Total 815.167 / 6804.339 6058 / 1815.167 Output Total 700 / 1500 800 / 1500 Balance 115.167 / 315.167 200 / 315.167 Intake: IV 315.167 / 315.167 Oral 500 / 1500 1000 / 1500 Output: Urine 700 / 1500 800 / 1500 Other: Urine Color Light Gema Light Gema Urine Appearance Clear Clear Urine Odor None None Voiding Methods Toilet Toilet Data Completed and Pending Labs on day of discharge: Labs from last 24 hours 11/27/21 05:25 WBC Pending RBC Pending Hgb Pending Hct Pending MCV Pending MCH Pending MCHC Pending RDW Pending Plt Count Pending MPV Pending
[2021-11-27 08:06] LABS: HGB 10.6 g/dL (11.2-15.7); MCH 28.9 pg (27.0-33.0); MCHC 31.2 % (32.0-36.0); MCV 92.6 fL (80-95); MPV 8.6 fL (8.0-11.0); Platelet Count 244 10^3/uL (130-400); RBC 3.67 10^6/uL (3.93-5.22); RDW 16.6 % (11.7-14.6); RDW-SD 52.4 fL; WBC 9.91 10^3/uL (4.4-10.8)
[2021-11-27] MEDS: Varicella Virus Vaccine (Live) 0.5 ML SC (09:07)
[2021-11-27 09:08] VITALS: BP 109/71; PULSE 74; RESP 16; TEMP 36.9
== END 2021-11-27 09:30 | disposition home or self-care (01) | DRG 807 ==
LOC: BCD 13:59 → OBS 14:00
PROVIDERS: Admitting Provider Advanced Practice Midwife; Visit Provider Advanced Practice Midwife
DX: O42.12 Full-term premature rupture of membranes, onset of labor more than 24 hours following rupture (principal); Z37.0 Single live birth; O24.420 Gestational diabetes mellitus in childbirth, diet controlled; O71.89 Other specified obstetric trauma; Z3A.38 38 weeks gestation of pregnancy; O99.02 Anemia complicating childbirth; D64.9 Anemia, unspecified
CPT/HCPCS: 36415; 82947; 85027; 86850; 86900; 86901; 87635; 96372; 59025; G0378; J2405; J2540

== ENCOUNTER 2022-01-30 01:52 | Outpatient (CLI) | payer OTHER, SELFPAY ==
[2022-01-30 12:18] LABS: GTT Comment See Comments
== END 2022-01-30 01:53 | disposition home or self-care (01) ==
LOC: LBO 01:52
PROVIDERS: Visit Provider Advanced Practice Midwife
DX: Z86.32 Personal history of gestational diabetes (principal)
CPT/HCPCS: 36415; 82951

== ENCOUNTER 2022-03-29 18:14 | Outpatient (REF) | payer OTHER, SELFPAY | END 2022-03-29 18:15 | disposition home or self-care (01) | LOC: LBN 18:14 | PROVIDERS: Visit Provider Nurse Practitioner Family | DX: J02.9 Acute pharyngitis, unspecified (principal) | CPT/HCPCS: 87077; 87070 ==

== ENCOUNTER 2022-12-07 01:30 | Outpatient (CLI) | payer MEDICAID, SELFPAY ==
[2022-12-07 12:28] LABS: Panorama Kit Sent via Fed Ex
[2022-12-07 12:42] LABS: Abs Immature Grans 0.07 10^3/uL (0.0-0.06); Absolute Basophil Count 0.04 10^3/uL (0.0-0.2); Absolute Eosinophil Count 0.22 10^3/uL (0.0-0.7); Absolute Lymphocyte Count 2.03 10^3/uL (1.2-3.4); Absolute Monocyte Count 0.59 10^3/uL (0.1-0.8); Absolute Neutrophil Count 7.07 10^3/uL (1.2-6.7); Basophils % 0.4; Eosinophils % 2.2; HCT 35.3 % (36.0-46.0); HGB 11.9 g/dL (11.2-15.7); Immature Grans % 0.7; Lymphocytes % 20.3; MCH 31.3 pg (27.0-33.0); MCHC 33.7 % (32.0-36.0); MCV 93 fL (80-95); MPV 8.2 fL (8.0-11.0); Monocytes % 5.9; Neutrophils % 70.5; Platelet Count 275 10^3/uL (130-400); RDW 12.9 % (11.7-14.6); RDW-SD 43.8 fL; WBC 10.02 10^3/uL (4.4-10.8)
[2022-12-07 13:20] LABS: Glucose,1 Hr (Glucola) 71 mg/dL (80-140)
[2022-12-09 15:22] LABS: Syphilis IgG w/Reflex Nonreactive (Nonreactive)
[2022-12-10 09:10] LABS: Hepatitis B Surface Ag Negative (Negative)
[2022-12-10 09:53] LABS: Hepatitis C Ab w Rflx HCV PCR Negative (Negative)
[2022-12-10 10:03] LABS: HIV-1/2 Ag & Ab Screen Negative (Negative)
[2022-12-10 10:10] LABS: Varicella IgG Antibody Positive (See Note)
[2022-12-10 10:14] LABS: Rubella IgG Ab (UVM) Positive (See Note)
[2022-12-21 17:14] LABS: Result Summary NEGATIVE; Specimen WB Whole Blood
== END 2022-12-07 01:31 | disposition home or self-care (01) ==
LOC: LBO 01:30
PROVIDERS: Visit Provider Advanced Practice Midwife
DX: Z34.91 Encounter for supervision of normal pregnancy, unspecified, first trimester (principal); Z36.89 Encounter for other specified antenatal screening; Z3A.12 12 weeks gestation of pregnancy
CPT/HCPCS: 36415; 81220; 81222; 82950; 86787; 86803; 86850; 86900; 86901; 87340; 87389; 85025; 86762; 86780

== ENCOUNTER 2022-12-07 19:23 | Outpatient (REF) | payer MEDICAID, SELFPAY ==
[2022-12-07 18:09] LABS: *AMPHETAMINES SCREEN URINE Negative (Negative); *BARBITURATES SCREEN URINE Negative (Negative); *BENZODIAZEPINES SCREEN URINE Negative (Negative); Cannabinoids THC Negative (Negative); Cocaine Screen,Urine Negative (Negative); METHADONE URINE SCREEN Negative (Negative); OPIATES URINE SCREEN Negative (Negative)
[2022-12-07 18:10] LABS: Tricyclic Antidepressants Negative (Negative)
[2022-12-10 12:56] LABS: Chlamydia Result Negative (Negative); GC Result Negative (Negative)
[2022-12-13 10:14] LABS: Buprenorphine Negative ng/mL (Cutoff: 5.0); Norbuprenorphine Negative ng/mL (Cutoff: 2.5)
== END 2022-12-07 19:24 | disposition home or self-care (01) ==
LOC: LBN 19:23
PROVIDERS: Visit Provider Advanced Practice Midwife
DX: Z34.91 Encounter for supervision of normal pregnancy, unspecified, first trimester (principal); N89.8 Other specified noninflammatory disorders of vagina; Z3A.12 12 weeks gestation of pregnancy
CPT/HCPCS: 80307; 80348; 87491; 87591; 87086; 87480; 87510; 87660

== ENCOUNTER 2023-02-01 00:25 | Outpatient (CLI) | payer MEDICAID, SELFPAY ==
--- NOTE | 2023-02-01 07:15 | DI.US_ITS ---
Exam(s) US OB 2-3 TRIMESTER EXAM: US OB 2-3 TRIMESTER CLINICAL HISTORY: ,z34.90. TECHNIQUE: Transabdominal obstetrical ultrasound performed. COMPARISON: US POCUS EXAM from 11/09/2022 FINDINGS: Number of fetuses: One. position: Variable Placental grade: 1 Placental location: Anterior no evidence of previa. BIOMETRIC DATA: BPD: 44mm = 19+ 3 weeks HC: 179mm = 20+ 3 weeks AC: 157mm = 20+ 6 weeks FL: 33mm = 20+ 3 weeks Cisterna Magna: 5 mm Cerebellum: 2 point the cm EFW: 363 grms 45% Composite Age: 20+ 2 weeks EDC by US: 19 June 2023 Heart Rate: 143BPM Amniotic fluid : Amount of fluid is within normal limits. ANATOMICAL SURVEY: Four-chambered heart: Unremarkable. LVOT: Unremarkable. RVOT: Unremarkable. Left-sided stomach: Unremarkable. urinary bladder: Unremarkable. Bilateral kidneys: Unremarkable. Three-vessel cord: Unremarkable. Cord insertion: Unremarkable. Posterior fossa:Unremarkable. ventricles: Unremarkable. nose: Unremarkable. lips: Unremarkable. palate: Unremarkable. spine: Unremarkable. Two arms and two legs: Unremarkable. IMPRESSION: 1. Single live intrauterine gestation with composite age of 20+ 2 weeks. 2. Normal anatomic survey. DATA REPOSITORY:
== END 2023-02-01 00:45 ==
LOC: DI 00:25
PROVIDERS: Visit Provider Advanced Practice Midwife
DX: Z34.90 Encounter for supervision of normal pregnancy, unspecified, unspecified trimester (principal)
CPT/HCPCS: 76805

== ENCOUNTER 2023-03-29 02:03 | Outpatient (CLI) | payer MEDICAID, SELFPAY ==
[2023-03-29 10:29] LABS: HCT 30.6 % (36.0-46.0); HGB 10.3 g/dL (11.2-15.7); MCH 32.3 pg (27.0-33.0); MCHC 33.7 % (32.0-36.0); MCV 96 fL (80-95); MPV 8.3 fL (8.0-11.0); Platelet Count 244 10^3/uL (130-400); RBC 3.19 10^6/uL (3.93-5.22); RDW 12.6 % (11.7-14.6); RDW-SD 44.1 fL
[2023-03-29 10:50] LABS: Glucose,1 Hr (Glucola) 98 mg/dL (80-140)
== END 2023-03-29 02:04 | disposition home or self-care (01) ==
LOC: LBO 02:04
PROVIDERS: Visit Provider Advanced Practice Midwife
DX: Z34.93 Encounter for supervision of normal pregnancy, unspecified, third trimester (principal); Z3A.28 28 weeks gestation of pregnancy
CPT/HCPCS: 36415; 82950; 85027